=== PATIENT | female | born 1985 | race Caucasian/White ===

== ENCOUNTER 2021-09-16 19:43 | Emergency (ER) | payer OTHER, SELFPAY ==
[2021-09-16 19:45] VITALS: BP 149/95; PULSE 82; RESP 20; TEMP 36.9; O2SAT 98; BMI 50088.8
--- NOTE | 2021-09-16 20:54 | ED_ITS ---
HPI - Extremity Problem General Chief complaint: Extremity Injury, Upper Stated complaint: finger pain Time Seen by Provider: 09/16/21 20:54 History of Present Illness HPI Narrative: Patient complains of pain and swelling around the right middle finger nail bed for 2 days, no injury no fever Related Data Previous Rx's Medication Instructions Recorded acetaminophen 500 mg tablet 1,000 mg PO QID PRN #20 tab 09/16/21 cephalexin 500 mg tablet 500 mg PO QID 7 Days #28 tab 09/16/21 doxycycline hyclate 100 mg capsule 100 mg PO BID 7 Days #14 cap 09/16/21 oxycodone 5 mg tablet 5 mg PO Q6H PRN #7 tab 09/16/21 Allergies Allergy/AdvReac Type Severity Reaction Status Date / Time sertraline [From Zoloft] Allergy Hives Verified 09/16/21 21:15 Review of Systems Review of Systems: Negative no fever no chills no joint pain no other skin rash no joint pain no numbness weakness or tingling Yes all other systems are reviewed and are negative [facility] Past Medical History Source: nursing notes reviewed Medical History (Updated 09/17/21 @ 00:03 by Maci Caceres) Anxiety Arthritis Asthma Carpal tunnel syndrome Depression Social History Social History Advance Directives: No Advance Directives Information Provided: No Patient : No Physical Exam Vital Signs: Vital Signs: Last Vital Signs Temp 98.4 F 09/16/21 19:45 Pulse 82 09/16/21 19:45 Resp 20 09/16/21 19:45 BP 149/95 H 09/16/21 19:45 Pulse Ox 98 09/16/21 19:45 Body Mass Index 15651.8 General appearance no acute distress Head is normocephalic atraumatic Neck is supple Respiratory no distress Right middle finger has redness and swelling localized to the proximal nail bed, there is no redness or swelling in any of the joints there is full range of motion in all joints, skin is intact and neurovascular intact distal Other extremities normal Course Course Course Narrative: Distal right middle finger is cleansed with Betadine Anesthesia is 6 cc of 1% lidocaine digital block A small incision is made in the nail bed and pus is expressed A dressing was applied, antibiotics were provided and patient was discharged Discharge Plan Discharge Clinical Impression: Paronychia of right middle finger Patient Disposition: Home, Self-Care Additional Instructions: Return to ER in 2-3 days for wound check Two frequent soaks with Epsom salts or warm water Return any time for worse pain and swelling, fever, any worse condition or any concerns Prescriptions: New cephalexin 500 mg tablet 500 mg PO QID 7 Days Qty: 28 RF: 0 doxycycline hyclate 100 mg capsule 100 mg PO BID 7 Days Qty: 14 RF: 0 acetaminophen 500 mg tablet 1,000 mg PO QID PRN (Reason: pain) Qty: 20 RF: 0 oxycodone 5 mg tablet 5 mg PO Q6H PRN (Reason: pain) Qty: 7 RF: 0 Interventions: ED Discharge Assessment Last Done: 09/16/21 22:55 Discharge Date/Time: 09/16/21 23:00
[2021-09-16] MEDS: Lidocaine HCl 1 % MPF 5 ML VIAL SUBCUT ×2 (22:09)
[2021-09-16] MEDS: cephALEXin 500 MG CAPSULE PO (22:48)
--- NOTE | 2021-09-16 22:59 | PC.NURSE ---
PT RIGHT MIDDLE FINGER CLEANED AND PARONYCHIA DRAINED BY MICA WILKINS APPLIED.
== END 2021-09-16 23:00 | disposition home or self-care (01) ==
PROVIDERS: Emergency Provider Emergency Medicine; PCP Internal Medicine
DX: L03.011 Cellulitis of right finger (principal); Z79.899 Other long term (current) drug therapy
CPT/HCPCS: 99283; 99284

== ENCOUNTER 2022-01-23 16:16 | Outpatient (REF) | payer MEDICAID, SELFPAY ==
--- NOTE | ~2022-01-23 | XR_ITS ---
EXAMINATION: XR CHEST CLINICAL INFORMATION: Cough COMPARISON: None TECHNIQUE: 2 views of the chest were obtained. FINDINGS: No significant abnormality is noted involving the heart, lungs, mediastinum, bony thorax or soft tissues. XR/XR chest 2V IMPRESSION: Unremarkable examination.
== END 2022-01-23 16:17 | disposition home or self-care (01) ==
LOC: HO.XRAY 16:16
PROVIDERS: Visit Provider Nurse Practitioner Primary Care
DX: R05.9 Cough, unspecified (principal)
CPT/HCPCS: 71046

== ENCOUNTER 2022-07-11 09:24 | Outpatient (REF) | payer MEDICAID, SELFPAY ==
--- NOTE | ~2022-07-11 | XR_ITS ---
EXAMINATION: XR KNEE, RIGHT CLINICAL INFORMATION: Trauma right lower leg, pain. COMPARISON: None TECHNIQUE: 5 views of the right knee. FINDINGS: Normal bony mineralization. No fracture, dislocation, or destructive process. No joint narrowing or erosive change or chondrocalcinosis. There is moderate suprapatellar effusion. No fat fluid level on the crosstable lateral view. Hoffa's fat pad appears normal. The deep infrapatellar recess is preserved. XR/XR knee RT 4V IMPRESSION: Suprapatellar effusion. No fracture, dislocation, or fat fluid level.
== END 2022-07-11 09:25 | disposition home or self-care (01) ==
LOC: HO.XRAY 09:24
PROVIDERS: Absent Provider General Practice; PCP General Practice; Visit Provider Emergency Medicine
DX: S89.91XA Unspecified injury of right lower leg, initial encounter (principal)
CPT/HCPCS: 73564

== ENCOUNTER → 2022-07-16 08:51 | Outpatient (BNVA) | payer MEDICAID, SELFPAY | PROVIDERS: PCP General Practice; Visit Provider Orthopaedic Surgery | DX: M17.0 Bilateral primary osteoarthritis of knee (principal); M23.91 Unspecified internal derangement of right knee; E66.09 Other obesity due to excess calories; Z68.43 Body mass index [BMI] 50.0-59.9, adult | CPT/HCPCS: 20610; 99202; J1100 ==

== ENCOUNTER → 2022-10-01 10:16 | Outpatient (BNVA) | payer MEDICAID, SELFPAY | PROVIDERS: PCP General Practice; Visit Provider Orthopaedic Surgery | DX: M17.0 Bilateral primary osteoarthritis of knee (principal); M23.91 Unspecified internal derangement of right knee; E66.09 Other obesity due to excess calories; Z68.43 Body mass index [BMI] 50.0-59.9, adult | CPT/HCPCS: 99212 ==

== ENCOUNTER → 2022-10-08 10:35 | Outpatient (BNVA) | payer MEDICAID, SELFPAY | PROVIDERS: PCP General Practice; Visit Provider Physician Assistant | DX: Z01.818 Encounter for other preprocedural examination (principal); E66.01 Morbid (severe) obesity due to excess calories; G47.33 Obstructive sleep apnea (adult) (pediatric); J45.909 Unspecified asthma, uncomplicated; F41.9 Anxiety disorder, unspecified; F32.A Depression, unspecified; Z68.43 Body mass index [BMI] 50.0-59.9, adult; Z99.89 Dependence on other enabling machines and devices | CPT/HCPCS: 83013; 99202; 99211 ==

== ENCOUNTER 2022-10-08 14:56 | Outpatient (REF) | payer MEDICAID, SELFPAY ==
[2022-10-09 15:27] LABS: H Pylori Breath Test Negative (Negative)
== END 2022-10-08 14:57 | disposition home or self-care (01) ==
LOC: HO.LNP 14:56
PROVIDERS: Visit Provider Physician Assistant
DX: Z01.818 Encounter for other preprocedural examination (principal); E66.01 Morbid (severe) obesity due to excess calories; J45.909 Unspecified asthma, uncomplicated; G47.33 Obstructive sleep apnea (adult) (pediatric); Z99.89 Dependence on other enabling machines and devices
CPT/HCPCS: 83013

== ENCOUNTER 2022-10-12 11:47 | Outpatient (REF) | payer MEDICAID, SELFPAY ==
--- NOTE | ~2022-10-12 | XR_ITS ---
EXAMINATION: XR CHEST CLINICAL INFORMATION: Morbid/severe obesity due to excess calories. COMPARISON: None TECHNIQUE: 2 views of the chest were obtained. FINDINGS: No significant abnormality is noted involving the heart, lungs, mediastinum, bony thorax or soft tissues. XR/XR chest 2V IMPRESSION: Unremarkable chest examination.
--- NOTE | 2022-10-12 11:52 | ECG_ITS ---
Test Reason : Morbid Obesity Blood Pressure : / mmHG Vent. Rate : 065 BPM Atrial Rate : 065 BPM P-R Int : 140 ms QRS Dur : 098 ms QT Int : 410 ms P-R-T Axes : 005 009 017 degrees QTc Int : 426 ms Normal sinus rhythm Minimal voltage criteria for LVH, may be normal variant ( [place] product ) Borderline ECG No previous ECGs available Referred By: Stephanie Mon Electronically Signed By:PK CH
[2022-10-12 12:09] LABS: MANUAL DIFF FLAG NO
[2022-10-12 12:32] LABS: Basophils Percent Auto 0.1 % (0-2); Eosinophils Absolute Auto 0.2 X10*3/uL (0.0-0.4); Hematocrit 39.9 % (37.0-47.0); Hemoglobin 12.5 g/dl (12.0-16.0); Imm Gran Abs Auto 0.03 X10*3/uL (0.00-0.03); Imm Gran Pct Auto 0.4 % (0.0-0.4); Lymphocytes Absolute Auto 2.5 X10*3/uL (1.2-4.9); Lymphocytes Percent Auto 32.9 % (20-40); Mean Corpuscular HGB Conc 31.3 g/dl (31.0-35.0); Mean Corpuscular Hemoglobin 24.4 pg (27.0-33.0); Mean Corpuscular Volume 77.9 fL (80.0-98.0); Mean Platelet Volume 10.4 fL (9.4-12.3); Monocytes Absolute Auto 0.4 X10*3/uL (0.1-1.2); Monocytes Percent Auto 4.8 % (2-11); Neutrophils Absolute Auto 4.5 x10*3/uL (2.0-8.3); Neutrophils Percent Auto 59.8 % (45-73); Platelet Count 288 X10*3/uL (160-400); Red Blood Count 5.12 X10*6/uL (4.20-5.50); Red Cell Distribution Width 15.8 % (11.0-16.0); White Blood Count 7.6 X10*3/uL (4.8-10.8)
[2022-10-12 12:50] LABS: Estimated Average Glucose 97 mg/dL
[2022-10-12 13:30] LABS: Alanine Aminotransferase 12 U/L (0-31); Albumin Level 4.4 g/dL (3.5-5.0); Alkaline Phosphatase 88 U/L (39-117); Anion Gap 12 (12-20); Aspartate Amino Transferase 15 U/L (5-31); Bilirubin Total 0.4 mg/dL (0.0-1.0); Blood Urea Nitrogen 10 mg/dL (9-16); C Reactive Protein 1.33 mg/dL (< or = 0.50); Calcium 9.5 mg/dL (8.4-10.2); Carbon Dioxide 26 mmol/L (22-29); Chloride 103 mmol/L (96-108); Cholesterol 151 mg/dL; Estimated Glomerular Filt Rate > 60; Ferritin 46 ng/mL (10-122); Glucose Random 81 mg/dL (60-115); HDL Cholesterol 45 mg/dL; Insulin 11 uU/mL (2-29); Iron 31 mcg/dL (30-160); LDL Cholesterol Calculated 86 mg/dl; Percent Iron Saturation 12 % (15-50); Potassium 4.4 mmol/L (3.3-5.1); Sodium 137 mmol/L (135-145); TSH reflex Free T4 1.54 uIU/mL (0.32-4.0); Total Iron Binding Capacity 262 mcg/dL (228-428); Total Protein 7.3 g/dL (6.5-8.0); Triglycerides 103 mg/dL; Unsaturated Iron Binding 231 ug/dL; Vitamin D 25-OH Total 19.8 ng/mL (>30)
[2022-10-12 13:41] LABS: Folate 10.5 ng/mL (> or = 4.0); Vitamin B12 405 pg/mL (200-900)
[2022-10-13 17:39] LABS: Calcium (PTHI) 9.5 mg/dL (8.6-10.2); PTHI 64 pg/mL (16-77)
[2022-10-16 06:29] LABS: Zinc 94 mcg/dL (60-130)
[2022-10-17 14:39] LABS: Vitamin A 35 mcg/dL (38-98)
[2022-10-21 06:22] LABS: Vitamin B1 10 nmol/L (8-30)
== END 2022-10-12 11:48 | disposition home or self-care (01) ==
LOC: HO.LAB 11:47
PROVIDERS: PCP General Practice; Visit Provider Physician Assistant
DX: Z01.818 Encounter for other preprocedural examination (principal); E66.01 Morbid (severe) obesity due to excess calories; G47.33 Obstructive sleep apnea (adult) (pediatric); J45.909 Unspecified asthma, uncomplicated; Z99.89 Dependence on other enabling machines and devices
CPT/HCPCS: 36415; 71046; 80053; 80061; 82306; 82607; 82728; 82746; 83036; 83525; 83540; 83970; 84425; 84443; 84590; 84630; 85025; 86140; 93005

== ENCOUNTER → 2022-10-14 09:50 | Outpatient (REF) | payer MEDICAID, SELFPAY | LOC: HO.SL 09:50 | PROVIDERS: PCP General Practice; Visit Provider General Practice | DX: G47.33 Obstructive sleep apnea (adult) (pediatric) (principal) | CPT/HCPCS: 95806 ==

== ENCOUNTER → 2022-10-29 09:38 | Outpatient (BNVA) | payer MEDICAID, SELFPAY | PROVIDERS: PCP General Practice; Visit Provider Physician Assistant | DX: E66.01 Morbid (severe) obesity due to excess calories (principal); Z68.43 Body mass index [BMI] 50.0-59.9, adult | CPT/HCPCS: 99212 ==

== ENCOUNTER → 2022-11-11 15:29 | Outpatient (BNVA) | payer MEDICAID, SELFPAY | PROVIDERS: PCP General Practice; Visit Provider Dietitian, Registered | DX: E66.01 Morbid (severe) obesity due to excess calories (principal); Z68.43 Body mass index [BMI] 50.0-59.9, adult | CPT/HCPCS: 97802 ==

== ENCOUNTER → 2022-11-12 11:00 | Outpatient (BNVA) | payer OTHER, MEDICAID, SELFPAY | PROVIDERS: PCP General Practice; Visit Provider Counselor Mental Health | DX: F33.1 Major depressive disorder, recurrent, moderate (principal); F41.9 Anxiety disorder, unspecified; E66.01 Morbid (severe) obesity due to excess calories | CPT/HCPCS: 90791 ==

== ENCOUNTER → 2022-11-13 11:01 | Outpatient (BNVA) | payer OTHER, MEDICAID, SELFPAY | PROVIDERS: PCP General Practice; Visit Provider Physician Assistant Surgical | DX: Z13.89 Encounter for screening for other disorder (principal) ==

== ENCOUNTER → 2022-11-20 09:30 | Outpatient (BNVA) | payer MEDICAID, SELFPAY | PROVIDERS: PCP General Practice; Visit Provider Physician Assistant | DX: E66.01 Morbid (severe) obesity due to excess calories (principal); Z68.42 Body mass index [BMI] 45.0-49.9, adult | CPT/HCPCS: 99212 ==

== ENCOUNTER 2022-11-26 07:55 | Outpatient (REF) | payer MEDICAID, SELFPAY ==
--- NOTE | ~2022-11-26 | FL_ITS ---
EXAMINATION: XR FLUOROSCOPY UPPER GI WITH AIR CLINICAL INFORMATION: Morbid obesity due to excess calories. COMPARISON: None TECHNIQUE: Fluoroscopic assessment of the upper GI tract was performed in various upright and supine/prone obliquities utilizing thin and thick high density barium contrast material and effervescent granules. A 13 mm barium tablet was also utilized. FINDINGS: The esophagus was normal in course, caliber, and contour. There was normal distensibility with no fixed segment of narrowing. No focal mucosal abnormality was identified. There was some delay of passage of the barium tablet at the level of the midesophagus. This cleared with additional swallow of water, freely passing into the stomach. No significant esophageal dysmotility was observed. Contrast passed freely across the gastroesophageal junction into the stomach. No significant hiatal hernia. There was normal distensibility of the stomach with no focal abnormality identified. There was prompt gastric emptying into the duodenum which demonstrated a normal appearance. No gastroesophageal reflux was observed. FLUOROSCOPY TIME: 2.2 minutes DOSE AREA PRODUCT: 30.607 Gy-cm2 (hernandez-centimeter squared) FL/FL upper GI w air IMPRESSION: Normal upper GI examination.
--- NOTE | ~2022-11-26 | US_ITS ---
EXAMINATION: US COMPLETE ABDOMEN WITH LIVER ELASTOGRAPHY CLINICAL INFORMATION: Morbid/severe obesity due to excess calories. COMPARISON: None. TECHNIQUE: Real-time imaging of the abdominal viscera. Noninvasive ultrasound liver fibrosis assessment is performed using Yuli ElastPQ point quantification shear wave elastography (2D-SWE) with a C5-2 MHz transducer. Multiple elastography samples are obtained. FINDINGS: PANCREAS: Normal. The visualized pancreatic head and body are normal in appearance. The remainder of the pancreas is obscured from visualization by the overlying bowel gas. ABDOMINAL AORTA: The proximal, middle, and distal aortic segments are normal in caliber. INFERIOR VENA CAVA: Visualized portions are normal. LIVER: The liver demonstrates normal size, contour and slight increased echogenicity. No focal lesion or intrahepatic biliary duct dilatation. The right lobe measures 16.2 cm in length. The left lobe measures 10.9 cm in length. Portal flow is hepatopedal. Shear wave liver elastography median stiffness is 1.40 m/s (reference: normal median stiffness is 1.3 m/s or less). IQR/median stiffness to assess sampling precision is 0.14 (reference: good quality data set is IQR/median stiffness of 0.15 or less). GALLBLADDER: Normal. The gallbladder is physiologically distended without evidence of stones, sludge, polyps, wall thickening or pericholecystic fluid. COMMON BILE DUCT: Normal in caliber measuring 0.24 cm in diameter. RIGHT KIDNEY: Normal. No hydronephrosis. No renal calculi or focal parenchymal lesions. The kidney measures 12.0 cm in maximum dimension. LEFT KIDNEY: Normal. No hydronephrosis. No renal calculi or focal parenchymal lesions. The kidney measures 10.3 cm in maximum dimension. SPLEEN: Normal. The spleen measures 11.4 cm in maximum dimension. FREE FLUID: None. US/US abdomen comp w elastography IMPRESSION: 1. Mild hepatic steatosis. No focal lesion seen. 2. Liver elastography: Median liver stiffness measures 1.40 m/s corresponding to cACLD (ruled out). REFERENCE: Society of Radiologists in Ultrasound Liver Stiffness Thresholds (2019): LIVER STIFFNESS THRESHOLDS: *Liver Stiffness equal or less than 1.3 m/s: High probability of being normal. *Liver Stiffness less than 1.7 m/s: In the absence of other known clinical signs, rules out compensated advanced chronic liver disease. *Liver Stiffness 1.7-2.1 m/s: Suggestive of compensated advanced chronic liver disease but need further test for confirmation. *Liver Stiffness over 2.1 m/s: Rules in compensated advanced chronic liver disease. *Liver Stiffness over 2.4 m/s: Suggestive of clinically significant portal hypertension. QUALITY OF DATA SET: *IQR/Median value equal or less than 0.15 implies a quality data set. *IQR/Median value over 0.15 implies a poor quality data set. SIGNIFICANT CHANGE FROM PRIOR EXAM: Significant change if liver stiffness measurement is 10% or greater from prior exam. OTHER CONSIDERATIONS: The stage of liver fibrosis may be overestimated in the setting of acute hepatitis, liver inflammation, elevated liver function tests, hepatic vascular congestion, obstructive cholestasis, non-fasting state, and infiltrative diseases such as amyloidosis and lymphoma. In some patients with NAFLD, the liver stiffness thresholds for compensated advanced chronic liver disease may be lower. In causes other than viral hepatitis and NAFLD, liver stiffness thresholds are not well established.
== END 2022-11-26 07:56 | disposition home or self-care (01) ==
LOC: HO.US 07:55
PROVIDERS: Visit Provider Physician Assistant
DX: Z01.818 Encounter for other preprocedural examination (principal); E66.01 Morbid (severe) obesity due to excess calories; J45.909 Unspecified asthma, uncomplicated; G47.33 Obstructive sleep apnea (adult) (pediatric); Z99.89 Dependence on other enabling machines and devices
CPT/HCPCS: 74246; 76705; 76981

== ENCOUNTER → 2022-12-01 10:59 | Outpatient (BNVA) | payer OTHER, MEDICAID, SELFPAY | PROVIDERS: PCP General Practice; Visit Provider Physician Assistant | DX: Z13.89 Encounter for screening for other disorder (principal) ==

== ENCOUNTER 2022-12-03 10:00 | Outpatient (RCR) | payer MEDICAID, SELFPAY ==
--- NOTE | 2022-11-03 10:20 | MHC.PT.EP ---
[facility] [place] Office [place] Office [place] Office [address] [phone] F: [phone] F: [phone] F: [phone] F: [phone] Physical Therapy Plan of Care Date of Evaluation: Date of Surgery: Diagnosis: B knee OA Assessment: 37 y/o female referred to PT with B knee OA and unilateral internal derangement knee. S/s consistent with OA and ?meniscal involvement resulting in pain and difficulty with walking, ascending/descending stairs, kneeling, squatting, standing and getting up after prolonged sitting secondary to decreased knee/hip strength, decreased R knee AROM 5-0-95, B lateral patella tilt, pain at joint line, and impaired gait pattern. REcommend PT 2x/week for 5 weeks to address impairments, implement HEP, and optimize functional mobility. 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 Manual therapy to restore motion and function. Therapeutic exercise to improve strength and flexibility. Neuromuscular re-education for posture and balance. Therapeutic activities to return to functional activities of daily living. Electronically signed by: Mariela Bynum PT Please sign and return to therapist. Thank you for your referral.
--- NOTE | 2022-12-03 11:01 | MHC.PT.DC ---
[facility] [place] Office [place] Office [place] Office [address] Anish Panda [address] [phone] F: [phone] F: [phone] F: [phone] F: [phone] Physical Therapy Discharge Report Diagnosis: B knee OA Date of Surgery: Date of Evaluation: 11/03/22 Date of Discharge: 12/03/22 Treatments to Date: 9 Cancellations to Date: 0 No Shows to Date: 0 Discharge Status: Independent with HEP Patient Elected to Stop Discharge Summary: We reviewed HEP and she is going to start going to the gym to work on these exercises. She reports she feels she can continue I at home and would like to be d/c. At this time, she still presents with instability of R knee, however improved awareness and less hyperextension noted in static posture. She also has improved awareness while exercises to avoid hyperextension. D/c at this time. Electronically signed by: Mariela Bynum PT Please sign and return to therapist. Thank you for your referral.
== END 2022-12-03 11:01 | disposition home or self-care (01) ==
LOC: HO.PT 10:00
PROVIDERS: PCP General Practice; Visit Provider Orthopaedic Surgery
DX: M23.91 Unspecified internal derangement of right knee (principal)
CPT/HCPCS: 97110; 97140; 97161

== ENCOUNTER → 2022-12-11 10:30 | Outpatient (BNVA) | payer MEDICAID, SELFPAY | PROVIDERS: PCP General Practice; Visit Provider Physician Assistant | DX: Z13.89 Encounter for screening for other disorder (principal) ==

== ENCOUNTER 2022-12-15 09:12 | Outpatient (REF) | payer MEDICAID, SELFPAY ==
[2022-12-15 16:59] LABS: CT PCR NOT DETECTED (Not Detect.); NG PCR NOT DETECTED (Not Detect.)
[2022-12-16 04:56] LABS: HBsAGNum1 0.24 S/CO (0.00-0.99); HIV AB/AG Nonreactive (Nonreactive); HIV Num 1 0.12 S/CO (0.00-0.99); Hepatitis B Surface Antigen Negative (Negative); ~Hepatitis C Antibody Nonreactive (Nonreactive)
[2022-12-16 05:08] LABS: Syphilis Screen Nonreactive (Nonreactive)
[2022-12-16 09:07] LABS: BV Int Neg Control Negative (Negative); BV Int Pos Control Positive (Positive)
== END 2022-12-15 09:13 | disposition home or self-care (01) ==
LOC: HO.LAB 09:12
PROVIDERS: PCP General Practice; Visit Provider Advanced Practice Midwife
DX: Z01.419 Encounter for gynecological examination (general) (routine) without abnormal findings (principal); Z11.3 Encounter for screening for infections with a predominantly sexual mode of transmission; Z11.4 Encounter for screening for human immunodeficiency virus [HIV]; R10.2 Pelvic and perineal pain; R33.9 Retention of urine, unspecified
CPT/HCPCS: 0353U; 36415; 86780; 86803; 87086; 87340; 87389; 87480; 87510; 87624; 87660; 88142

== ENCOUNTER 2022-12-15 11:02 | Outpatient (REF) | payer MEDICAID, SELFPAY ==
[2022-12-17 09:39] LABS: HPV mRNA E6/E7 rflx Not Detected (Not Detected)
== END 2022-12-15 11:03 | disposition home or self-care (01) ==
LOC: HO.LNP 11:02
PROVIDERS: Visit Provider Advanced Practice Midwife
DX: Z01.419 Encounter for gynecological examination (general) (routine) without abnormal findings (principal); Z11.51 Encounter for screening for human papillomavirus (HPV); Z87.42 Personal history of other diseases of the female genital tract
CPT/HCPCS: 87624; 88142

== ENCOUNTER → 2022-12-22 10:00 | Outpatient (BNVA) | payer OTHER, MEDICAID, SELFPAY | PROVIDERS: PCP General Practice; Visit Provider Counselor Mental Health | DX: Z13.89 Encounter for screening for other disorder (principal) ==

== ENCOUNTER 2022-12-23 10:49 | Outpatient (REF) | payer MEDICAID, SELFPAY ==
--- NOTE | ~2022-12-23 | US_ITS ---
EXAMINATION: US PELVIS CLINICAL INFORMATION: Pelvic and perineal pain; the last menstrual period was on 12/21/2022. COMPARISON: None TECHNIQUE: Ultrasound of the pelvis is performed using both transabdominal and transvaginal transducers along with Doppler. Transvaginal imaging is performed due to inadequate visualization transabdominally. FINDINGS: Uterus: The uterus is anteverted and anteflexed. The uterus measures 9.7 x 4.5 x 4.9 cm. Nabothian cysts are seen within the cervix. A 2 mm calcifications incidentally noted within the cervix. The double wall endometrial thickness is 0.7 mm. The uterus is smooth in contour and has normal myometrial echogenicity. Within the fundus, a 1.9 x 1.3 x 1.3 cm hypoechoic, subserosal fibroid is noted. Adnexa: Both ovaries are visualized. There is normal color flow to the adnexa. There is no ovarian torsion. There is no pelvic ascites or fluid collection. Right ovary measures 3.1 x 1.5 x 2.2 cm, volume 5.5 mL. Left ovary measures 3.1 x 1.9 x 2.3 cm, volume 7.1 mL. The left ovary contains a 0.6 x 1.1 x 1.1 cm shadowing calcification, which may represent a dermoid tumor. US/US pelvic and transvaginal IMPRESSION: 1. A small uterine fibroid is noted within the fundus. 2. Nabothian cysts are seen within the cervix. 3. A 1.2 cm coarse calcifications noted within the left ovary, suspicious for a dermoid tumor. Gynecology evaluation management is recommended.
== END 2022-12-23 10:50 | disposition home or self-care (01) ==
LOC: HO.US 10:49
PROVIDERS: PCP General Practice; Visit Provider Advanced Practice Midwife
DX: R10.2 Pelvic and perineal pain (principal)
CPT/HCPCS: 76830; 76856

== ENCOUNTER → 2023-01-01 09:30 | Outpatient (BNVA) | payer OTHER, MEDICAID, SELFPAY | PROVIDERS: PCP General Practice; Visit Provider Physician Assistant | DX: Z13.89 Encounter for screening for other disorder (principal) ==

== ENCOUNTER 2023-01-06 10:38 | Outpatient (REF) | payer MEDICAID, SELFPAY ==
[2023-01-06 15:50] LABS: CT PCR NOT DETECTED (Not Detect.); NG PCR NOT DETECTED (Not Detect.)
[2023-01-07 09:37] LABS: BV Int Neg Control Negative (Negative); BV Int Pos Control Positive (Positive)
== END 2023-01-06 10:39 | disposition home or self-care (01) ==
LOC: HO.LNP 10:38
PROVIDERS: PCP General Practice; Visit Provider Advanced Practice Midwife
DX: Z11.3 Encounter for screening for infections with a predominantly sexual mode of transmission (principal); N89.8 Other specified noninflammatory disorders of vagina; D36.9 Benign neoplasm, unspecified site; Z87.42 Personal history of other diseases of the female genital tract
CPT/HCPCS: 0353U; 87255; 87480; 87510; 87660; 99212

== ENCOUNTER → 2023-01-29 10:43 | Outpatient (BNVA) | payer MEDICAID, SELFPAY | PROVIDERS: PCP General Practice; Visit Provider Surgery | DX: E66.01 Morbid (severe) obesity due to excess calories (principal); J45.909 Unspecified asthma, uncomplicated; G47.33 Obstructive sleep apnea (adult) (pediatric); F41.9 Anxiety disorder, unspecified; D36.9 Benign neoplasm, unspecified site; F32.A Depression, unspecified; Z99.89 Dependence on other enabling machines and devices; Z68.42 Body mass index [BMI] 45.0-49.9, adult | CPT/HCPCS: 99212 ==

== ENCOUNTER → 2023-02-09 08:49 | Outpatient (BNVA) | payer MEDICAID, SELFPAY | PROVIDERS: PCP General Practice; Visit Provider Surgery | DX: E66.01 Morbid (severe) obesity due to excess calories (principal); G47.33 Obstructive sleep apnea (adult) (pediatric); F41.9 Anxiety disorder, unspecified; F32.A Depression, unspecified; J45.909 Unspecified asthma, uncomplicated; K59.00 Constipation, unspecified; Z99.89 Dependence on other enabling machines and devices; Z68.42 Body mass index [BMI] 45.0-49.9, adult | CPT/HCPCS: 99212 ==

== ENCOUNTER → 2023-02-10 11:31 | Outpatient (BNVA) | payer MEDICAID, SELFPAY | PROVIDERS: PCP General Practice; Visit Provider Physician Assistant Surgical | DX: E66.01 Morbid (severe) obesity due to excess calories (principal); Z68.42 Body mass index [BMI] 45.0-49.9, adult | CPT/HCPCS: 99212 ==

== ENCOUNTER 2023-02-11 09:23 | Outpatient (REF) | payer MEDICAID, SELFPAY ==
[2023-02-11 09:42] LABS: MANUAL DIFF FLAG NO
[2023-02-11 09:50] LABS: Basophils Percent Auto 0.3 % (0-2); Eosinophils Absolute Auto 0.2 X10*3/uL (0.0-0.4); Eosinophils Percent Auto 3.2 % (0-4); Hematocrit 39.1 % (37.0-47.0); Hemoglobin 12.5 g/dl (12.0-16.0); Imm Gran Abs Auto 0.02 X10*3/uL (0.00-0.03); Imm Gran Pct Auto 0.3 % (0.0-0.4); Lymphocytes Absolute Auto 2.2 X10*3/uL (1.2-4.9); Mean Corpuscular Hemoglobin 25.6 pg (27.0-33.0); Mean Corpuscular Volume 80.1 fL (80.0-98.0); Monocytes Absolute Auto 0.4 X10*3/uL (0.1-1.2); Monocytes Percent Auto 4.9 % (2-11); Neutrophils Absolute Auto 4.7 x10*3/uL (2.0-8.3); Neutrophils Percent Auto 62.3 % (45-73); Platelet Count 265 X10*3/uL (160-400); Red Blood Count 4.88 X10*6/uL (4.20-5.50); White Blood Count 7.6 X10*3/uL (4.8-10.8)
[2023-02-11 09:53] LABS: INTERNATIONAL NORM RATIO 1.1 (0.9-1.1); Prothrombin Time 12.5 SEC (10.0-13.1)
[2023-02-11 09:55] LABS: Partial Thromboplastin Time 37.7 SEC (26.0-36.4)
[2023-02-11 10:05] LABS: Estimated Average Glucose 97 mg/dL
[2023-02-11 10:25] LABS: Alanine Aminotransferase 15 U/L (0-31); Alkaline Phosphatase 79 U/L (39-117); Anion Gap 10 (12-20); Aspartate Amino Transferase 13 U/L (5-31); Bilirubin Total 0.6 mg/dL (0.0-1.0); Blood Urea Nitrogen 14 mg/dL (9-16); C Reactive Protein 1.25 mg/dL (< or = 0.50); Calcium 8.9 mg/dL (8.4-10.2); Carbon Dioxide 24 mmol/L (22-29); Chloride 109 mmol/L (96-108); Cholesterol 131 mg/dL; Estimated Glomerular Filt Rate > 60; Glucose Random 93 mg/dL (60-115); HDL Cholesterol 41 mg/dL; Iron 48 mcg/dL (30-160); LDL Cholesterol Calculated 78 mg/dl; Percent Iron Saturation 18 % (15-50); Potassium 4.3 mmol/L (3.3-5.1); Sodium 139 mmol/L (135-145); Total Iron Binding Capacity 266 mcg/dL (228-428); Total Protein 6.7 g/dL (6.5-8.0); Triglycerides 63 mg/dL; Unsaturated Iron Binding 218 ug/dL
[2023-02-11 10:57] LABS: Ferritin 51 ng/mL (10-122); Vitamin B12 440 pg/mL (200-900)
[2023-02-15 11:03] LABS: Calcium (PTHI) 9.1 mg/dL (8.6-10.2); PTHI 58 pg/mL (16-77)
[2023-02-16 15:14] LABS: Zinc 74 mcg/dL (60-130)
[2023-02-18 02:13] LABS: Vitamin A 38 mcg/dL (38-98)
[2023-02-19 17:08] LABS: Vitamin B1 12 nmol/L (8-30)
== END 2023-02-11 09:24 | disposition home or self-care (01) ==
LOC: HO.LAB 09:23
PROVIDERS: PCP General Practice; Visit Provider Surgery
DX: E66.01 Morbid (severe) obesity due to excess calories (principal); G47.33 Obstructive sleep apnea (adult) (pediatric); F32.A Depression, unspecified; F41.9 Anxiety disorder, unspecified; J45.909 Unspecified asthma, uncomplicated; Z99.89 Dependence on other enabling machines and devices
CPT/HCPCS: 36415; 80053; 80061; 82306; 82607; 82728; 83036; 83540; 83970; 84425; 84443; 84590; 84630; 85025; 85610; 85730; 86140

== ENCOUNTER → 2023-02-23 11:16 | Outpatient (BNVA) | payer MEDICAID, SELFPAY | PROVIDERS: PCP General Practice; Visit Provider Obstetrics & Gynecology | DX: N83.292 Other ovarian cyst, left side (principal) | CPT/HCPCS: 99212 ==

== ENCOUNTER 2023-02-24 06:18 | Inpatient (IN) | payer MEDICAID, SELFPAY ==
[2023-02-22 12:39] VITALS: BMI 47.9
--- NOTE | 2023-02-23 09:09 | P.CONAN_ITS ---
Documented by User: Belinda Pryor NP 02/23/23 09:12 HPI - Anesthesia Eval Consult details Narrative: 38yo F for Gastrectomy Sleeve EGD, possible diaphragmatic hernia,possible ventral hernia,possible open PMFSH Active Problems Active Problems: All Active Problems (Updated 02/22/23 @ 12:38 by Iwona Bowers RN) Bilateral primary osteoarthritis of knee (Acute) Internal derangement of right knee (Acute) Morbid obesity (Acute) GENESIS on CPAP (Acute) Anxiety and depression (Acute) Pre-op evaluation (Acute) Major depressive disorder, recurrent, moderate (Acute) Anxiety disorder (Acute) Screen for sexually transmitted diseases (Acute) Pelvic pain (Acute) Urinary retention with incomplete bladder emptying (Acute) Well woman exam with routine gynecological exam (Acute) Hx of abnormal cervical Pap smear (Acute) Chronic headaches (Acute) Dermoid (Acute) Vaginal lesion (Acute) Vaginal itching (Acute) Constipation (Acute) Asthma (Acute) Past Medical History Medical History (Updated 02/24/23 @ 07:35 by Elodia Coe) Anxiety Arthritis Asthma Carpal tunnel syndrome Depression History of female sterilization Obesity due to excess calories GENESIS on CPAP Family History Family History Mother Diabetes Hypertension High cholesterol Father No problems noted. Sister ADHD Scoliosis Sister No problems noted. Sister No problems noted. Sister No problems noted. Sister No problems noted. Brother No problems noted. Daughter No problems noted. Daughter ADHD PTSD (post-traumatic stress disorder) Daughter No problems noted. Daughter No problems noted. Son No problems noted. Son No problems noted. Maternal Aunt Breast cancer Maternal Grandmother Cervical cancer Surgical History Surgical History (Updated 02/22/23 @ 12:41 by Iwona Bowers RN) Hx of skin graft Social History Social History Are you a primary career center director to a significant other at home: No Do you presently have visiting nurse or other home services: No Alcohol intake: current Alcohol intake frequency: does not drink Patient Tobacco Use Status: Former Tobacco user Quit Date: 2014 Tobacco use type: Cigarette Cigarettes Per Day: 5 Years Smoked: 4 Current occupational status: employed Current occupation: [employer] Allergies Allergy/AdvReac Type Severity Reaction Status Date / Time sertraline [From Zoloft] Allergy Intermediate Hives Verified 02/24/23 06:24 latex Allergy Mild Hives Verified 02/24/23 06:24 Home Medications Medication Instructions Recorded Confirmed Last Taken Type ESSURE control vaginal 09/28/22 02/10/23 Unknown History duloxetine 30 mg capsule,delayed 30 mg PO DAILY 09/28/22 02/24/23 02/23/23 History release albuterol sulfate 90 mcg/actuation 2 puff inhalation Q4H PRN wheezing 01/29/23 02/24/23 02/23/23 History aerosol inhaler (Ventolin HFA) fluticasone propionate 110 2 puff inhalation BID 01/29/23 02/24/23 02/24/23 History mcg/actuation HFA aerosol inhaler (Flovent HFA) Exam Exam Date and Time: February 23, 2023 0909 Height,Weight and Vital Signs: Height 5 ft 2 in Weight 119.023 kg Pertinent Lab Results Pertinent Lab Results: Laboratory Tests 02/11/23 09:35 Blood Type O Positive Antibody Screen NEGATIVE Laboratory Tests 02/11/23 02/11/23 09:40 09:40 WBC 7.6 Hgb 12.5 Hct 39.1 Plt Count 265 Sodium 139 Potassium 4.3 Chloride 109 H Carbon Dioxide 24 BUN 14 Creatinine 0.57 Assessment and Plan Assessment Anesthesia Assessment: Chart Reviewed Documented by User: Jens Angeles MD 02/24/23 08:17 [facility] Active Problems Active Problems: All Active Problems (Updated 02/22/23 @ 12:38 by Iwona Bowers RN) Bilateral primary osteoarthritis of knee (Acute) Internal derangement of right knee (Acute) Morbid obesity (Acute) GENESIS on CPAP (Acute) Anxiety and depression (Acute) Pre-op evaluation (Acute) Major depressive disorder, recurrent, moderate (Acute) Anxiety disorder (Acute) Screen for sexually transmitted diseases (Acute) Pelvic pain (Acute) Urinary retention with incomplete bladder emptying (Acute) Well woman exam with routine gynecological exam (Acute) Hx of abnormal cervical Pap smear (Acute) Chronic headaches (Acute) Dermoid (Acute) Vaginal lesion (Acute) Vaginal itching (Acute) Constipation (Acute) Asthma (Acute) joe Past Medical History Medical History (Updated 02/24/23 @ 07:35 by Elodia Coe) Anxiety Arthritis Asthma Carpal tunnel syndrome Depression History of female sterilization Obesity due to excess calories GENESIS on CPAP Patient : No Family History Family History Mother Diabetes Hypertension High cholesterol Father No problems noted. Sister ADHD Scoliosis Sister No problems noted. Sister No problems noted. Sister No problems noted. Sister No problems noted. Brother No problems noted. Daughter No problems noted. Daughter ADHD PTSD (post-traumatic stress disorder) Daughter No problems noted. Daughter No problems noted. Son No problems noted. Son No problems noted. Maternal Aunt Breast cancer Maternal Grandmother Cervical cancer Family history of problems with anesthesia: No Surgical History Surgical History (Updated 02/22/23 @ 12:41 by Iwona Bowers RN) Hx of skin graft History of Problems with Anesthesia: No Social History Social History Are you a primary career center director to a significant other at home: No Do you presently have visiting nurse or other home services: No Alcohol intake: current Alcohol intake frequency: does not drink Patient Tobacco Use Status: Former Tobacco user Quit Date: 2014 Tobacco use type: Cigarette Cigarettes Per Day: 5 Years Smoked: 4 Current occupational status: employed Current occupation: [employer] Allergies Allergy/AdvReac Type Severity Reaction Status Date / Time sertraline [From Zoloft] Allergy Intermediate Hives Verified 02/24/23 06:24 latex Allergy Mild Hives Verified 02/24/23 06:24 Home Medications Medication Instructions Recorded Confirmed Last Taken Type ESSURE control vaginal 09/28/22 02/10/23 Unknown History duloxetine 30 mg capsule,delayed 30 mg PO DAILY 09/28/22 02/24/23 02/23/23 History release albuterol sulfate 90 mcg/actuation 2 puff inhalation Q4H PRN wheezing 01/29/23 02/24/23 02/23/23 History aerosol inhaler (Ventolin HFA) fluticasone propionate 110 2 puff inhalation BID 01/29/23 02/24/23 02/24/23 History mcg/actuation HFA aerosol inhaler (Flovent HFA) Exam Airway Mallampati Class: I TM Dist: >3cm Neck ROM: Full Loose/Missing/Broken Teeth: Yes Heart: ok Lungs: ok Assessment and Plan Assessment Anesthesia Assessment: Anesthesia Plan Discussed Final Anesthetic Review Family History of Problems with Anesthesia: No History of Problems with Anesthesia: No NPO: Yes ASA Class: III Final Preanesthetic Review: No Changes in Pt Med Stat, Meds/Allgs Chart Reviewed, Consent Obtained/Reviewed and Anes Risks/Benef Reviewed Patient Risk: Intermediate Procedure Risk: Intermediate Anesthetic Plan Anesthetic Plan: GA and Agree w/ Assess. and Plan Disposition: Standard PACU
[2023-02-23 11:28] LABS: COVID-19 Test Negative (Negative); IDNOW Serial# BCCEAD1C
--- NOTE | 2023-02-23 12:49 | MHC.SHP ---
Pre-Procedural Eval Section A Date of Service: 02/23/23 The patient is an INPATIENT: Yes The History & Physical has been completed within 30 days and I have reviewed it.: Yes Section B Chief Complaint: Morbid (severe) obesity due to excess calories Allergies: Allergies Allergy/AdvReac Type Severity Reaction Status Date / Time sertraline [From Zoloft] Allergy Intermediate Hives Verified 02/23/23 11:24 latex Allergy Mild Hives Verified 02/23/23 11:24 Plan I have reviewed the history and physical and performed a pertinent physical examination on my patient. No changes have occurred unless specified. Time Spent With Patient Time: Total time managing care of this patient today ____ minutes.
[2023-02-24] VITALS (21 sets, daily range): BP systolic 112–143; BP diastolic 62–98; PULSE 56–74; RESP 14–21; TEMP 36.3–36.9; O2SAT 96–100
[2023-02-24 06:26] LABS: UPreg QC Valid YES; Urine Pregnancy NEGATIVE (NEGATIVE)
[2023-02-24] MEDS: Lactated Ringers 1,000 ML 150 ML IVCONT (06:49)
[2023-02-24] MEDS: Aprepitant 32 MG/4.4 ML VIAL IVPUSH (06:51)
--- NOTE | 2023-02-24 06:59 | PHA.MEDREC ---
Pharmacy Consult ? Medication Reconciliation Pharmacy has completed the medication reconciliation. Reviewed med rec done by nursing
--- NOTE | 2023-02-24 07:03 | P.OP_ITS ---
Operative Note Operative Note Date of Service: 02/24/23 Narrative: Preop diagnosis: [obesity, GENESIS on CPAP] Postop diagnosis: [same] Procedure: [Laparoscopic sleeve gastrectomy, intraoperative upper endoscopy, gastropexy] Surgeon: Nagi Gamboa MD Assist: [Dee Gracia PA-C] Anesthesia: [GET, Marcaine, 0.5% with epi] Estimated blood loss: [3cc] Specimen: [Portion of stomach with fundus] Intraoperative findings: [Slightly enlarged liver with NAFLD, no evidence of hiatal hernia after partial dissection of left aisha and hiatus] Indications: [The patient is a 38-year-old woman with a mosqueda with obesity refractory to medical management. She entered the surgical weight loss program here at [place] with a BMI of 53.5/292 lb with a comorbidity of obstructive sleep apnea requiring CPAP. After Education and demonstration of understanding of the concepts required for surgical weight loss, the options of continued medical weight loss versus surgical options including gastric sleeve and gastric bypass were reviewed. The patient wanted to proceed with laparoscopic sleeve gastrectomy, possible hiatal hernia repair, intraoperative upper endoscopy and possible ventral hernia repair. I reviewed the inherent risks of this procedure which include, but are not limited to: Bleeding that could require another operation or blood transfusion; the inherent risks of transfusion reaction infectious disease from blood transfusions; the risk of staple line leaks that could cause sepsis, multi-system organ failure and ; the risk of mesenteric or deep vein thrombosis of the lower extremities that could cause a fatal pulmonary embolism was reviewed; the risk of GERD that could require conversion to gastric bypass was discussed; the risk of recurrent hiatal hernia, especially in the setting of weight regain was reviewed. The risk of weight regain if maladaptive eating and sedentary behavior continue was discussed. The importance of proper diet and increased activity to augment surgical weight loss and the fact that no operation would result in weight loss of poor dietary decisions and sedentary behavior are resumed were discussed at length and apparently understood. The patient had the option of having a graves registration specialist present and declined this option.] Procedure: [The patient was identified in the preoperative holding area by myself and again in the operating suite by myself and the OR team. Patient was placed supine on the operating table. Safety straps were utilized and a footboard utilized. The patient was induced in general endotracheal anesthesia administered with excellent effect. An appropriate time-out was performed. The patient's abdomen was then widely prepped and draped in the usual manner for surgery using chlorprep. Antibiotics per protocol were administered by Anesthesia. After infiltrating preemptive local in the skin and subcutaneous tissues in the left upper quadrant, a stab incision was made sharply in the left subcostal abdomen and the Veress needle inserted without incident. An appropriate drop test was performed then a pneumoperitoneum of 15 mmHg was obtained using carbon dioxide. Opening pressures were 7 mmHg. Next, a 5 mm 0 degree scope over a 5 mm Optiview trocar was used to access the abdomen via the epigastric incision in the midline. Once the abdomen was entered, the the trocar obturator was removed and the laparoscope was used to confirm there was no injury from the Veress needle nor trocar insertion injury to the bowel or mesentery, then the scope was switched to a 5 mm 45 degree laparoscope. Next, using preemptive local, additional 5 mm trocars were placed under direct laparoscopic vision on the patient's left abdomen, then right and the 5 mm midline trocar upsized to a 12 mm to accommodate the stapler. The patient was then positioned in reverse Trendelenburg and the liver retractor deployed through the right lateral 5 mm trocar and secured. A 40 Dominican ViSiGi bougie was inserted by Anesthesia per os and advanced to the stomach to decompress. It was then withdrawn to the GE junction all under direct laparoscopic vision. Dissection was begun along the greater curvature using the 5 mm [place] LigaSure for hemostasis and continued to the left aisha of the diaphragm. Diss ection was then carried towards the pylorus to 3-4 cm from the pylorus and retro gastric adhesions lysed. The gastroesophageal fat pad was carefully mobilized taking care to avoid injury to the esophagus and stomach and dissection carried towards the short gastrics taking care to avoid injury to the spleen and splenic artery. The diaphragmatic hiatus was carefully examined for a hernia, and no a pparent hernia was appreciated, which is consistent with the upper GI study. Next, the 40 Fr ViSiGi bougie was advanced by anesthesia under direct vision and laparoscopic guidance and positioned in the antrum approximately 3 cm from the pylorus using laparoscopic graspers to serve as a guide for a stapled sleeve gastrectomy. Stapling was performed with [employer]UDIA stapler with a purple 45 and then orange 45 and 60 loads. The bougie served as a guide to maintain the same sleeve caliber to avoid stricture & sleeve distortion. The 10 mm clip hide and skin classer was used to apply additional clips to the staple line. Care was taken to be sure that the sleeve laid flat and was without stricture. Once the sleeve was complete, the portion of stomach was placed in the lower abdomen to be sent for removal and permanent section. The staple line, gastrocolic omentum, spleen and short gastric areas were all inspected for hemostasis which was found to be good. The ViSiGi bougie used for a leak test by reducing the reverse Trendelenburg and instilling sterile saline. Anesthesia ran of O2 at 1 L per minute via the bougie and no bubbles were demonstrated from the staple line. Next, the bougie was withdrawn under laparoscopic vision used to suction the esophagus and hypopharynx and then discarded. After inspecting again for hemostasis, a gastropexy was performed using 2-0 Polysorb suture to secure the sleeve gastrectomy to the gastrocolic omentum. Next, I broke scrub perform an on-table upper endoscopy to assess the sleeve and the esophagus and stomach. The patient was returned to neutral position and the Olympus 160 gastroscope was advanced taking care to preserve the endotracheal tube. The esophagus was intubated without incident. Minimal air was insufflated and the scope advanced into the newly formed sleeve. The staple line was inspected for hemostasis and the morphology of the sleeve appeared straight with a uniform diameter. Intraoperatively, there was no evidence of staple line leak seen during laparoscopy as air was insufflated via endoscope. The scope was then used to aspirate the air from the sleeve withdrawn and removed. I then rescrubbed to return to the operative field and again inspected the field for hemostasis. After final assessment for hemostasis, the patient was returned to neutral position, a Neil used to withdraw the resected gastric specimen which was sent for permanent section. The fascia of the 12 mm midline was closed using an 0 Polysorb figure of 8 on a suture passer under direct laparoscopic vision. The abdomen was then deflated and all trocars removed. The suture was then tied and the skin closed with 4-0 Monocryl subcuticular sutures. The abdomen was then washed and dried, benzoin and Steri-Strips applied followed by Tegaderms. The patient tolerated the procedure well was then extubated the recover in stable condition. All sponge needle and instrument counts were correct x2. At the patient's request, I contacted her Tu by telephone at [phone] to apprise him of the operation, findings and postoperative plan. His questions seemed to be satisfactorily answered.]
--- NOTE | 2023-02-24 07:33 | PC.NURSE ---
Verbal order per Dr. Gamboa to disregard the order for scopolamine patch. This medication not administered.
--- NOTE | 2023-02-24 10:25 | P.DS_ITS ---
DS: Providers Provider Date of Service: 02/25/23 Date of admission: 02/24/23 06:18 Primary care physician: Unknown Physician DS: Summary Hospital Course Hospital Course: ADMITTING DIAGNOSIS: morbid obesity,?GENESIS on CPAP, arthritis, anxiety, depression, asthma DISCHARGE DIAGNOSIS: same, s/p laparoscopic sleeve gastrectomy and gastropexy PAST SURGICAL HISTORY:?skin graft PROCEDURE: upper endoscopy, laparoscopic sleeve gastrectomy and gastropexy DISCHARGE SUMMARY: History of Present Illness: The patient is a?38 year-old woman with a BMI of?48 kg/m2 and associated co- morbidities as described above. The patient had extensive work-up, lost?30 lbs preoperatively and was electively scheduled for laparoscopic, possible open sleeve gastrectomy and gastropexy. Risks and complications of the surgery were discussed with the patient in advance, particularly the possibility of , pulmonary embolism, anastomotic leak, bleeding, bowel injury, GERD, cardiac, renal or pulmonary complications. The patient understood all the risks and was in agreement with the surgical plan. Hospital Course: The patient underwent an uneventful laparoscopic sleeve gastrectomy with gastropexy on the day of admission. Postoperatively, the patient was transferred to the surgical floor. The patient received IV Acetaminophen and IV dilaudid for pain control. Patient was started on bariatric phase 1 diet POD #0. On postoperative day one, the patient was feeling well without nausea, vomiting, fevers, or tachycardia. The patient had some mild incisional pain and the abdomen was soft.? On the morning of postoperative day one, the patient was continued on 1 ounce of water or ice every half hour. During the day, the patient did fairly well, having some incisional pain, but able to ambulate adequately and to tolerate liquids well. Since the patient is doing well, we decided that the patient was ready to be discharged. The patient was given instructions to follow-up with me next week and to call my office for any fever over 101, persistent abdominal pain, nausea, vomiting, GERD, symptoms of DVT such as calf tenderness, or leg swelling, or pulmonary embolism such as chest pain or shortness of breath.? The patient was also instructed to drink 40-60 ounces of liquids per day using the 1-ounce cups. The patient had been given prescriptions for Tylenol for pain, Zofran prn for nausea, and pantoprazole and carafate previously. The patient was encouraged to ambulate and use the incentive spirometer. The patient was allowed to shower, but no baths, and encouraged to stay active at home. All of these instructions were given to the patient personally. All questions were answered and the patient understood all instructions, the instructions were also given to the patient in print. Time Spent with Patient Time attestation: Total time managing care of this patient today ____ minutes. Discharge coordination time: Less than 30 minutes Quality: Safe Use of Opioids Does Pt have an Active Cancer Diagnosis on the Problem List?: No Quality: Stroke Does the patient have a stroke diagnosis?: No Physical Exam Vital Signs: Vital Signs: Last Vital Signs Temp 97.4 F 02/24/23 10:15 Pulse 65 02/24/23 10:20 Resp 19 02/24/23 10:20 BP 136/84 02/24/23 10:20 Pulse Ox 100 02/24/23 10:20 O2 Del Method Nasal Cannula 02/24/23 10:20 O2 Flow Rate 4 02/24/23 10:20 BMI result Body Mass Index 47.9 DS: Data Data Completed and Pending Pending studies at discharge: Pending at discharge 02/24/23 09:41 Surgical [PTH] Routine Labs on day of discharge: Laboratory Results - last 24 hr 02/23/23 02/24/23 10:58 06:15 Urine Test NEGATIVE COVID-19 ([facility]) Negative COVID-19 Clin Com See Note Discharge Plan Discharge Anticipated Discharge Date/Time: 02/25/23 10:00 Patient Disposition: Home, Self-Care Discharge Diagnosis: morbid obesity s/p laparoscopic sleeve gastrectomy Referrals: Physician,Unknown J [Primary Care Provider] - 1 Week Discharge Medications: Continued duloxetine 30 mg capsule,delayed release(DR/EC) 30 mg PO DAILY ESSURE control vaginal fluticasone propionate [Flovent HFA] 110 mcg/actuation HFA aerosol inhaler 2 puff inhalation BID albuterol sulfate [Ventolin HFA] 90 mcg/actuation HFA aerosol inhaler 2 puff inhalation Q4H PRN (Reason: wheezing) ondansetron HCl 4 mg tablet 4 mg PO Q6H PRN (Reason: nausea and vomiting) Qty: 20 0RF pantoprazole 40 mg tablet,delayed release (DR/EC) 40 mg PO QAM 30 Days Qty: 30 2RF sucralfate 100 mg/mL suspension 10 ml PO BID 30 Days Qty: 600 2RF acetaminophen 500 mg/15 mL liquid 500 mg PO Q6H PRN (Reason: fever or pain) Qty: 237 2RF Discontinued cholecalciferol (vitamin D3) 50 mcg (2,000 unit) capsule 50 mcg PO DAILY Qty: 30 5RF Discharge Orders: Discharge Order (Routine); Ordered 02/25/23 Ordered By: Sharon Gracia Activity on Discharge: No heavy lifting Stand Alone Forms: Patient Portal Discharge page Care Plan Goals: weight loss Health Concerns: morbid obesity Plan of Treatment: No tub baths, sex or returning to work until discussed at first post op appointment. No alcohol, tobacco or illegal drug use. Continue to use incentive spirometer hourly while awake. Walk in home for 5- 10 minutes every 2 hours during the first week. Wear abdominal binder with activity. Follow all meal plan instructions from your bariatric surgeon. Review bariatric handbook and call with any questions. Discharge Instructions 1. Please call your doctor or come back to the emergency room should any new symptoms arise. 2. Activity: abstain from alcohol,? limited stair climbing, no bending, no driving, no exercise, no illicit substances, no lifting, no sex, no tub bath, no work. 4. Diet: follow your bariatric surgeons recommendations for advancing diet. 5. Dressing Change/Wound Care: Your incisions are covered with waterproof dressings. You can shower with these and pat dry. Do not rub over dressings or incisions. If the area is tender, you may apply an ice pack for short intervals (no more than 20 minutes on, followed by at least 20 minutes off). Do not apply heat. Do not use creams, lotions, or topical antibiotics unless instructed to do so by your surgeon. 6. Call your doctor if: - Your temperature exceeds 101.5 F - You experience excessive pain or swelling - You have an unexpected reaction to medication - You have excessive bleeding - You experience continued vomiting/nausea - Your incision begins to separate - Your incision shows signs of infection such as increased redness, swelling, excessive pain, heat, or drainage (light blood or clear fluid is normal) General instructions: No lifting greater than 10 lbs for the next 6 weeks[address] driving within 24 hours of taking narcotic pain medications. If you do not move your bowels in the next 2 days, please take milk of magnesia over the counter. Please follow the post op diet and do not advance your diet until you are seen in the office in about 2 weeks. Please walk around your home every hour or two to prevent blood clots from forming in your legs. Y ou do not need to wake from sleeping to walk. Please sleep in a bed or couch to prevent kinking at the hips and knees. Please take your incentive spirometer (your lung technical documentation specialist) home with you and use it for the next few days to prevent pneumonias. You may shower, no hot tubs, baths or swimming pools. Please call the office with any questions or concerns such as increasing abdominal pain, fever, chills, shortness of breath, chest pain, leg pain or swelling, or redness or drainage from your incisions. Please make sure you are consuming 40-60 ounces of total fluids per day. Avoid all carbonation. Do not hesitate to contact the office with any questions at . The patient's medical history has been reviewed and they are considered low risk for post op DVT and therefore DVT prophylaxis is not considered necessary. Travel after surgery was reviewed. The patient has not disclosed any travel plans during the first 30 days after surgery and they have been advised that within the first 30 days after surgery any bus, plane, train or car travel over 2 hours in duration is contraindicated due to the possibility of developing blood clots from immobility. Any travel, needs to include periods of ambulation of 10 minutes in duration every 2 hours.? The patient was instructed to discuss any plans for travel during this period with their bariatric surgeon. Assessment: s/p laparoscopic sleeve gastrectomy with gastropexy
[2023-02-24] MEDS: HYDROmorphone HCl 0.5 MG/0.5 ML SYRINGE IVPUSH ×3 (10:43→12:01)
--- NOTE | 2023-02-24 11:27 | ECG_ITS ---
Test Reason : postop Blood Pressure : / mmHG Vent. Rate : 056 BPM Atrial Rate : 056 BPM P-R Int : 158 ms QRS Dur : 102 ms QT Int : 444 ms P-R-T Axes : 020 -02 -03 degrees QTc Int : 428 ms Sinus bradycardia Nonspecific T wave abnormality Abnormal ECG When compared with ECG of 12-OCT-2022 12:16, Nonspecific T wave abnormality now evident in Anterolateral leads Referred By: Yariel Langston Electronically Signed By:Alfonzo Almodovar
[2023-02-24 12:14] LABS: Hematocrit 37.9 % (37.0-47.0)
--- NOTE | 2023-02-24 12:21 | P.PNGS_ITS ---
Subjective Subjective Date of Service: 02/24/23 Patient reports: still having pain Interval history: The patient is seen in PACU just before she is being transferred to [facility]. She reports expected pain that is worse with inspiration and radiating up towards her right neck and shoulders. She also has some complaints of left chest pain that prompted an EKG that showed no ST elevation or acute changes. She is having no nausea nor vomiting at this time. Physical Exam Vital Signs: Vital Signs: Last Vital Signs Temp 97.8 F 02/24/23 12:01 Pulse 58 02/24/23 12:06 Resp 17 02/24/23 12:06 BP 122/81 02/24/23 12:06 Pulse Ox 96 02/24/23 12:06 O2 Del Method Nasal Cannula 02/24/23 12:06 O2 Flow Rate 2 02/24/23 12:06 BMI result Body Mass Index 47.9 She is nontoxic She is in no acute respiratory distress Appropriate incisional tenderness is noted Objective Data Active Medications Albuterol Sulfate (Albuterol Sulfate (0.083%) 2.5 Mg/3 Ml Vial.Neb) 2.5 mg INHALE ONCE PRN PRN Reason: Shortness of Breath/Wheezing Fentanyl (Fentanyl Citrate/Pf 100 Mcg/2 Ml Vial) 50 mcg IVPUSH Q5M PRN; Protocol PRN Reason: Pain, Severe (Pain Scale 7-10) Hydromorphone HCl (Hydromorphone Hcl 0.5 Mg/0.5 Ml Syringe) 0.5 mg IVPUSH Q5M PRN; Protocol PRN Reason: Pain, Severe (Pain Scale 7-10) Last Admin: 02/24/23 12:01 Dose: 0.25 mg Documented By: ANI Lactated Ringer's (Lr) 1,000 mls @ 150 mls/hr IVCONT .Q6H40M EMILI Last Admin: 02/24/23 06:49 Dose: 150 mls/hr Documented By: STACY Ondansetron HCl (Ondansetron Hcl 4 Mg/2 Ml Vial) 4 mg IVPUSH ONCE PRN PRN Reason: Nausea and Vomiting Labs 02/24/23 12:07 02/24/23 12:07 Labs: Laboratory Results - last 24 hr 02/24/23 06:15 Urine Test NEGATIVE Procedures Date of Service Date of Service: 02/24/23 Progress Note: A&P Assessment and plan (1) S/P laparoscopic sleeve gastrectomy: Status: Acute (2) Morbid obesity: Status: Acute (3) GENESIS on CPAP: Status: Acute (4) Bilateral primary osteoarthritis of knee: Status: Acute Plan See orders Patient is okay to use her own CPAP at present settings Trend labs. Encourage sips of water per protocol. Time Spent With Patient Time: Total time managing care of this patient today ____ minutes. Quality Stroke Does the patient have a stroke diagnosis?: No VTE Prior VTE?: No VTE Risk Level:: Surgical - moderate VTE Device Contraindication: N/A - Device Ordered VTE Drug Contraindication: Treatment Not Indicated
[2023-02-24 12:37] LABS: Anion Gap 13 (12-20); Blood Urea Nitrogen 7 mg/dL (9-16); Calcium 8.7 mg/dL (8.4-10.2); Carbon Dioxide 25 mmol/L (22-29); Chloride 105 mmol/L (96-108); Creatinine Clr Calc Pharmacy 167.3; Estimated Glomerular Filt Rate > 60; Glucose Random 140 mg/dL (60-115); Potassium 3.8 mmol/L (3.3-5.1); Sodium 139 mmol/L (135-145)
[2023-02-24] MEDS: Lactated Ringers 1,000 ML 100 ML IVCONT ×2 (13:26→22:41)
[2023-02-24] MEDS: ceFAZolin Sodium/Dextrose,Iso 2 GM/50 ML PIGGYBACK IV (13:45)
[2023-02-24] MEDS: Acetaminophen 1,000 MG/100 ML PIGGYBACK 16.7 MG IV ×2 (14:24→19:39)
[2023-02-24] MEDS: ondansetron HCL 4 MG/2 ML VIAL IVPUSH (19:39)
[2023-02-24] MEDS: 0.9 % Sodium Chloride Flush 3 ML SYRINGE IVFLUSH (19:39)
[2023-02-24] MEDS: Famotidine/PF 20 MG/2 ML VIAL IVPUSH (19:39)
[2023-02-24] MEDS: Fluticasone Propionate 100 MCG BLST.W.DEV 2 PUFF INHALE (20:12)
[2023-02-25] MEDS: Acetaminophen 1,000 MG/100 ML PIGGYBACK 16.7 MG IV (01:21)
[2023-02-25 03:43] VITALS: BP 127/78; PULSE 52; RESP 16; TEMP 36.3; O2SAT 96
[2023-02-25] MEDS: ondansetron HCL 4 MG/2 ML VIAL IVPUSH (04:20)
[2023-02-25 06:49] LABS: MANUAL DIFF FLAG NO
[2023-02-25 06:59] LABS: Basophils Percent Auto 0.1 % (0-2); Eosinophils Percent Auto 0.2 % (0-4); Hematocrit 35.8 % (37.0-47.0); Hemoglobin 11.2 g/dl (12.0-16.0); Imm Gran Abs Auto 0.03 X10*3/uL (0.00-0.03); Imm Gran Pct Auto 0.3 % (0.0-0.4); Lymphocytes Absolute Auto 2.3 X10*3/uL (1.2-4.9); Lymphocytes Percent Auto 25.5 % (20-40); Mean Corpuscular HGB Conc 31.3 g/dl (31.0-35.0); Mean Corpuscular Hemoglobin 25.6 pg (27.0-33.0); Mean Corpuscular Volume 81.7 fL (80.0-98.0); Mean Platelet Volume 11.5 fL (9.4-12.3); Monocytes Absolute Auto 0.5 X10*3/uL (0.1-1.2); Monocytes Percent Auto 5.4 % (2-11); Neutrophils Absolute Auto 6.1 x10*3/uL (2.0-8.3); Neutrophils Percent Auto 68.5 % (45-73); Platelet Count 245 X10*3/uL (160-400); Red Blood Count 4.38 X10*6/uL (4.20-5.50); Red Cell Distribution Width 15.9 % (11.0-16.0); White Blood Count 8.9 X10*3/uL (4.8-10.8)
[2023-02-25] MEDS: Famotidine/PF 20 MG/2 ML VIAL IVPUSH (07:07)
[2023-02-25] MEDS: DULoxetine HCl 30 MG CAPSULE.DR PO (07:07)
[2023-02-25 07:12] LABS: Anion Gap 12 (12-20); Blood Urea Nitrogen 6 mg/dL (9-16); Calcium 9.2 mg/dL (8.4-10.2); Carbon Dioxide 26 mmol/L (22-29); Chloride 106 mmol/L (96-108); Creatinine Clr Calc Pharmacy 161.6; Estimated Glomerular Filt Rate > 60; Glucose Random 91 mg/dL (60-115); Potassium 4.1 mmol/L (3.3-5.1); Sodium 140 mmol/L (135-145)
--- NOTE | 2023-02-25 07:18 | P.PNGS_ITS ---
Subjective Subjective Date of Service: 02/25/23 Patient reports: feels better Interval history: The patient reports that she is doing very well. She has no chest pain, difficulty breathing, shortness of breath. Her overall improvement is noted and she is tolerating sips of water with no regurgitation, odynophagia, nausea, vomiting or hematemesis. She reports minimal pain and minimal nausea. She is anxious to be discharged. Physical Exam Vital Signs: Vital Signs: Last Vital Signs Temp 97.3 F 02/25/23 03:43 Pulse 52 02/25/23 03:43 Resp 16 02/25/23 03:43 BP 127/78 02/25/23 03:43 Pulse Ox 96 02/25/23 03:43 O2 Del Method CPAP 02/25/23 03:43 O2 Flow Rate 2 02/24/23 12:38 BMI result Body Mass Index 47.9 On exam, she is nontoxic She is in no acute respiratory distress Abdominal binder is intact with appropriate incisional tenderness. No rigidity is noted Objective Data Active Medications Albuterol Sulfate (Albuterol Sulfate 90 Mcg 8 Gm Inhaler) 2 puff INHALE Q4H PRN PRN Reason: wheezing Duloxetine HCl (Duloxetine Hcl 30 Mg Capsule.Dr) 30 mg PO DAILY [facility] Last Admin: 02/25/23 07:07 Dose: 30 mg Documented By: MABLE Famotidine (Famotidine/Pf 20 Mg/2 Ml Vial) 20 mg IVPUSH BID [facility] Last Admin: 02/25/23 07:07 Dose: 20 mg Documented By: MABLE Fluticasone Propionate (Fluticasone Propionate 100 Mcg Blst.W.Dev) 2 puff INHALE RBID [facility] Last Admin: 02/24/23 20:12 Dose: 2 puff Documented By: BENEDICTO Hydromorphone HCl (Hydromorphone Hcl 0.5 Mg/0.5 Ml Syringe) 0.25 mg IVPUSH Q4H PRN; Protocol PRN Reason: Pain, Moderate (Pain Scale 4-6 Lactated Ringer's (Lr) 1,000 mls @ 100 mls/hr IVCONT .Q10H [facility] Last Admin: 02/24/23 22:41 Dose: 100 mls/hr Documented By: STEPHANI Acetaminophen (Ofirmev) 1,000 mg in 100 mls @ 16.7 mls/hr IV .Q6H [facility] Last Admin: 02/25/23 01:21 Dose: 16.7 mls/hr Documented By: STEPHANI Metoclopramide HCl (Metoclopramide Hcl 10 Mg/2 Ml Vial) 10 mg IVPUSH Q6H PRN PRN Reason: Nausea Ondansetron HCl (Ondansetron Hcl 4 Mg/2 Ml Vial) 4 mg IVPUSH Q8H [facility] Last Admin: 02/25/23 04:20 Dose: 4 mg Documented By: STEPHANI Sodium Chloride (0.9 % Sodium Chloride Flush 3 Ml Syringe) 3 ml IVFLUSH QSHIFT [facility] Last Admin: 02/24/23 19:39 Dose: 3 ml Documented By: STEPHANI Labs 02/25/23 05:52 02/25/23 05:52 Labs: Laboratory Results - last 24 hr 02/24/23 02/25/23 02/25/23 12:07 05:52 05:52 MCV 81.7 MCH 25.6 L MCHC 31.3 RDW 15.9 Plt Count 245 MPV 11.5 Immature Gran % (Auto) 0.3 Neut % (Auto) 68.5 Lymph % (Auto) 25.5 [place] % (Auto) 5.4 Eos % (Auto) 0.2 Baso % (Auto) 0.1 Lymph # (Auto) 2.3 [place] # (Auto) 0.5 Eos # (Auto) 0.0 Baso # (Auto) 0.0 Abs Immat Gran (auto) 0.03 Absolute Neuts (auto) 6.1 Absolute Nucleated RBC 0.000 Nucleated RBC % (auto) 0.0 Anion Gap 13 12 Estim Creat Clear Calc 167.3 161.6 Estimated GFR > 60 > 60 Random Glucose 140 H 91 Calcium 8.7 9.2 Procedures Date of Service Date of Service: 02/25/23 Progress Note: A&P Assessment and plan (1) S/P laparoscopic sleeve gastrectomy: Status: Acute (2) Bilateral primary osteoarthritis of knee: Status: Acute (3) GENESIS on CPAP: Status: Acute (4) Morbid obesity: Status: Acute Plan Patient is meeting hydration criteria in stable for discharge Patient's hemoglobin his diluted down based on this morning's BUN versus yesterday, given the lack of tachycardia, I suspect there is no ongoing bleeding or clinical reason to detained the patient. PA will review dietary plan and discharge the patient later this morning. Follow-up in the office in 1 week. Time Spent With Patient Time: Total time managing care of this patient today ____ minutes. Quality Stroke Does the patient have a stroke diagnosis?: No VTE Prior VTE?: No VTE Risk Level:: Surgical - moderate VTE Device Contraindication: N/A - Device Ordered VTE Drug Contraindication: Treatment Not Indicated
[2023-02-25 07:52] VITALS: BP 126/78; PULSE 59; RESP 18; TEMP 36.3; O2SAT 97
[2023-02-25 08:17] VITALS: O2SAT 97
[2023-02-25] MEDS: Fluticasone Propionate 100 MCG BLST.W.DEV 2 PUFF INHALE (08:17)
[2023-02-25 08:19] VITALS: PULSE 73; RESP 16; O2SAT 98
--- NOTE | 2023-02-25 08:52 | MHC.CM.PN ---
Addendum entered by Janette Sesay 02/25/23 08:55: Patient is discharged to home self care. Partner will transport home. Original Note: Female 37 S/P gastric Sleeve. She lives with Partner and kids. She is independent will all functional mobility. Vaxxed for Covid DP Home self care Pt will arrange transport home.
--- NOTE | 2023-02-25 14:18 | HO.POSTANES ---
Post Anesthesia Evaluation Post Anesthesia Evaluation Vital Signs: Vital Signs Temp Pulse Resp BP Pulse Ox O2 Del Method 02/25/23 08:17 97 Room Air 02/25/23 08:19 73 16 02/25/23 07:52 97.4 F 59 18 126/78 97 Room Air 02/25/23 03:43 97.3 F 52 16 127/78 96 CPAP Anesthesia: General Endotracheal-GETA Mental Status: Awake Pain Control: Satisfactory Nausea/Vomiting: None Hydration: Adequate Anesthesia-Related Issues: No Anes. Related Issues
== END 2023-02-25 10:53 | disposition home or self-care (01) | DRG 403 ==
LOC: HO.SSSA 10:25 → HO.S3 11:07
PROVIDERS: Nurse Practitioner; Physician Assistant Surgical; Admitting Provider Surgery; PCP General Practice; Visit Provider Surgery
PROC: 0DB64Z3 Excision of Stomach, Percutaneous Endoscopic Approach, Vertical (ICD-10-PCS; CPT 43845; principal; 2023-02-24 07:30)
DX: E66.01 Morbid (severe) obesity due to excess calories (principal); K76.0 Fatty (change of) liver, not elsewhere classified; F32.A Depression, unspecified; F41.9 Anxiety disorder, unspecified; G47.33 Obstructive sleep apnea (adult) (pediatric); J45.909 Unspecified asthma, uncomplicated; M17.0 Bilateral primary osteoarthritis of knee; Z68.43 Body mass index [BMI] 50.0-59.9, adult; Z20.822 Contact with and (suspected) exposure to COVID-19; Z87.891 Personal history of nicotine dependence; Z91.040 Latex allergy status; Z88.8 Allergy status to other drugs, medicaments and biological substances; Z79.51 Long term (current) use of inhaled steroids; Z79.899 Other long term (current) drug therapy
CPT/HCPCS: 36415; 80048; 80053; 80061; 81025; 82306; 82607; 82728; 83036; 83540; 83970; 84425; 84443; 84590; 84630; 85014; 85018; 85025; 85610; 85730; 86140; 86850; 86900; 86901; 87635; 88307; 88342; 93005; 94640; 94664; C9088; C9145; J0131; J0690; J1100; J1170; J2250; J2405; J3010

== ENCOUNTER → 2023-03-03 10:31 | Outpatient (BNVA) | payer MEDICAID, SELFPAY | PROVIDERS: PCP General Practice; Visit Provider Physician Assistant | DX: E66.09 Other obesity due to excess calories (principal); Z68.42 Body mass index [BMI] 45.0-49.9, adult; Z90.3 Acquired absence of stomach [part of] | CPT/HCPCS: 99212 ==

== ENCOUNTER 2023-04-08 13:42 | Outpatient (REF) | payer MEDICAID, SELFPAY ==
--- NOTE | ~2023-04-08 | US_ITS ---
EXAMINATION: US PELVIS AND TRANSVAGINAL CLINICAL INFORMATION: Ovarian cyst. COMPARISON: Pelvic ultrasound 12/23/2022: 1.2 cm coarse calcifications noted within the left ovary, suspicious for a dermoid tumor. Gynecology evaluation management is recommended. TECHNIQUE: Ultrasound of the pelvis is performed using both transabdominal and transvaginal transducers along with Doppler. Transvaginal imaging is performed due to inadequate visualization transabdominally. FINDINGS: UTERUS: The uterus is anteverted and measures 8.9 x 5.0 x 5.6 cm. There is a fundal fibroid present slightly larger than previous measuring 2.2 x 1.5 x 1.8 cm (previously 1.9 x 1.3 x 1.3 cm). The double wall endometrial thickness is 9 mm. Nabothian cysts are present in the cervix. Small amount of free fluid present in the cul-de-sac. ADNEXA: Both ovaries are visualized. There is normal color flow to the adnexa. There is no ovarian torsion. There is no pelvic ascites or fluid collection. Right ovary measures 5.1 x 2.8 x 3.1 cm for a volume of 23 mL which includes a corpus luteal cyst measuring 1.9 x 1.5 x 1.8 cm. Left ovary measures 3.4 x 2.0 x 2.3 cm for a volume of 8.1 mL. Again seen are some echogenic areas in the ovary measuring 9 x 8 x 11 mm and 7 x 6 x 9 mm which may represent a dermoid and not significantly changed when compared to the prior study. US/US pelvic and transvaginal IMPRESSION: 1. Small fundal fibroid slightly larger than previous study. 2. Right ovarian corpus luteal cyst. 3. Question of left ovarian dermoid with areas of possible calcification, not significantly changed.
== END 2023-04-08 13:43 | disposition home or self-care (01) ==
LOC: HO.HMGCX 13:42
PROVIDERS: PCP General Practice; Visit Provider Obstetrics & Gynecology
DX: N83.299 Other ovarian cyst, unspecified side (principal)
CPT/HCPCS: 76830; 76856

== ENCOUNTER → 2023-04-09 11:10 | Outpatient (BNVA) | payer MEDICAID, SELFPAY | PROVIDERS: PCP General Practice; Visit Provider Physician Assistant | DX: Z98.84 Bariatric surgery status (principal) | CPT/HCPCS: 99212 ==

== ENCOUNTER 2023-04-14 10:31 | Outpatient (REF) | payer MEDICAID, SELFPAY ==
[2023-04-14 12:52] LABS: Lactate Dehydrogenase 196 U/L (122-220)
[2023-04-16 18:49] LABS: HCG Tumor Marker <5 mIU/mL
[2023-04-17 11:19] LABS: CA-125 71 U/mL (<35)
[2023-04-19 13:28] LABS: Alpha Fetoprotein 2.1 ng/mL
== END 2023-04-14 10:32 | disposition home or self-care (01) ==
LOC: HO.LAB 10:31
PROVIDERS: PCP General Practice; Visit Provider Obstetrics & Gynecology
DX: N83.299 Other ovarian cyst, unspecified side (principal); D25.9 Leiomyoma of uterus, unspecified
CPT/HCPCS: 36415; 82105; 83615; 84702; 86304; 99212

== ENCOUNTER 2023-04-15 13:32 | Outpatient (REF) | payer MEDICAID, SELFPAY ==
--- NOTE | ~2023-04-15 | XR_ITS ---
EXAMINATION: XR LUMBOSACRAL SPINE WITH OBLIQUES CLINICAL INFORMATION: Low back pain since weight loss surgery. COMPARISON: None available. TECHNIQUE: AP, both oblique, and lateral views of the lumbar spine. Lateral view of the lumbosacral junction. FINDINGS: There is normal lumbar lordosis and spinal alignment. The vertebral bodies and intervertebral disc spaces are unremarkable. There is no acute fracture or significant degenerative changes. The soft tissues are unremarkable. Multiple surgical clips overlie the epigastric region. Essure devices overlie the pelvis bilaterally. XR/XR lumbar spine 4V min IMPRESSION: 1. No significant lumbar spine abnormality. 2. Multiple surgical clips overlying the epigastric region.
== END 2023-04-15 13:33 | disposition home or self-care (01) ==
LOC: HO.HHCX 13:32
PROVIDERS: Visit Provider Internal Medicine
DX: M54.42 Lumbago with sciatica, left side (principal)
CPT/HCPCS: 72110

== ENCOUNTER → 2023-04-19 14:53 | Outpatient (BNVA) | payer MEDICAID, SELFPAY | PROVIDERS: PCP General Practice; Visit Provider Obstetrics & Gynecology | DX: N83.299 Other ovarian cyst, unspecified side (principal) | CPT/HCPCS: 99212 ==

== ENCOUNTER 2023-06-15 11:47 | Outpatient (REF) | payer MEDICAID, SELFPAY ==
[2023-06-15 13:37] LABS: MANUAL DIFF FLAG NO
[2023-06-15 13:52] LABS: INTERNATIONAL NORM RATIO 1.1 (0.9-1.1); Prothrombin Time 12.9 SEC (11.1-13.3)
[2023-06-15 13:55] LABS: Partial Thromboplastin Time 33.2 SEC (26.0-36.4)
[2023-06-15 13:59] LABS: Basophils Percent Auto 0.3 % (0-2); Eosinophils Absolute Auto 0.2 X10*3/uL (0.0-0.4); Eosinophils Percent Auto 2.9 % (0-4); Hemoglobin 13.6 g/dl (12.0-16.0); Imm Gran Abs Auto 0.02 X10*3/uL (0.00-0.03); Imm Gran Pct Auto 0.3 % (0.0-0.4); Lymphocytes Absolute Auto 2.5 X10*3/uL (1.2-4.9); Lymphocytes Percent Auto 36.2 % (20-40); Mean Corpuscular HGB Conc 32.4 g/dl (31.0-35.0); Mean Corpuscular Hemoglobin 27.9 pg (27.0-33.0); Mean Corpuscular Volume 86.2 fL (80.0-98.0); Mean Platelet Volume 12.3 fL (9.4-12.3); Monocytes Absolute Auto 0.3 X10*3/uL (0.1-1.2); Monocytes Percent Auto 4.6 % (2-11); Neutrophils Absolute Auto 3.8 x10*3/uL (2.0-8.3); Neutrophils Percent Auto 55.7 % (45-73); Platelet Count 264 X10*3/uL (160-400); Red Blood Count 4.87 X10*6/uL (4.20-5.50); White Blood Count 6.8 X10*3/uL (4.8-10.8)
[2023-06-15 14:19] LABS: Alanine Aminotransferase 11 U/L (0-31); Albumin Level 4.3 g/dL (3.5-5.0); Alkaline Phosphatase 78 U/L (39-117); Anion Gap 11 (12-20); Aspartate Amino Transferase 13 U/L (5-31); Bilirubin Total 0.4 mg/dL (0.0-1.0); Blood Urea Nitrogen 13 mg/dL (9-16); C Reactive Protein 0.63 mg/dL (< or = 0.50); Calcium 10.2 mg/dL (8.4-10.2); Carbon Dioxide 29 mmol/L (22-29); Chloride 103 mmol/L (96-108); Estimated Glomerular Filt Rate > 60; Glucose Random 87 mg/dL (60-115); Iron 36 mcg/dL (30-160); Percent Iron Saturation 14 % (15-50); Potassium 3.3 mmol/L (3.3-5.1); Sodium 140 mmol/L (135-145); Total Iron Binding Capacity 251 mcg/dL (228-428); Total Protein 7.5 g/dL (6.5-8.0); Unsaturated Iron Binding 215 ug/dL
[2023-06-15 14:20] LABS: Ferritin 54 ng/mL (10-122); TSH reflex Free T4 1.02 uIU/mL (0.32-4.0)
[2023-06-15 14:27] LABS: Erythrocyte Sedimentation Rate 23 MM/HR (0-20)
[2023-06-15 14:38] LABS: Folate 3.5 ng/mL (> or = 4.0); Vitamin B12 424 pg/mL (200-900)
[2023-06-21 13:18] LABS: Anti Nuclear Antibody Pattern Nuclear, Speckled; Anti Nuclear Antibody Screen POSITIVE (NEGATIVE)
== END 2023-06-15 11:48 | disposition home or self-care (01) ==
LOC: HO.HHCL 11:47
PROVIDERS: Visit Provider Student in an Organized Health Care Education/Training Program
DX: R23.3 Spontaneous ecchymoses (principal)
CPT/HCPCS: 36415; 80053; 82607; 82728; 82746; 83540; 84443; 85025; 85610; 85611; 85652; 85730; 85732; 86038; 86039; 86140

== ENCOUNTER 2023-08-28 15:29 | Emergency (ER) | payer MEDICAID, SELFPAY ==
--- NOTE | ~2023-08-28 | CT_ITS ---
CT ORBITS WITH CONTRAST HISTORY: 38 years old Female, right eye pain TECHNIQUE: CT images of the orbits were acquired with 85 mL Omnipaque [address] examination was performed using dose optimization techniques as appropriate, variously including the following: *Automated exposure control *Adjustment of mA and/or kV according to patient size (this includes techniques or standardized protocols for targeted exams where dose is matched to indication/reason for exam; i.e. extremities or head) *Use of iterative reconstruction technique DLP: 148.02 mGy-cm mGy-cm COMPARISON: None available FINDINGS: No evidence of globe hemorrhage or lens dislocation. No retrobulbar hematoma or radio-opaque foreign body. Normal symmetric appearance of the extraocular muscles. No abnormal enhancement. No infiltration of the pre- or postseptal fat. Right-sided staphyloma. Small staphyloma. Limited intracranial evaluation within normal limits. Trace layering fluid in the right maxillary sinus. The visualized calvarium is within normal limits. The mastoid air cells are well-aerated. CT/CT orbit BI w IV con IMPRESSION: The orbits and globes are within normal limits. No intraorbital mass is visualized. Right greater than left staphyloma.
[2023-08-28 15:56] VITALS: BP 142/89; PULSE 61; RESP 18; TEMP 36.8; O2SAT 96; BMI 34.7
--- NOTE | 2023-08-28 15:57 | ED.EYEPROB ---
HPI - Eye Problem General Chief complaint: Eye Problems Stated complaint: right eye swelling and pain Time Seen by Provider: 08/28/23 16:52 Source: patient and RN notes reviewed Mode of arrival: ambulatory Limitations: no limitations History of Present Illness HPI Narrative: This is a 38-year-old female, with a history of anxiety, arthritis, asthma, carpal tunnel syndrome, and unknown autoimmune disorder, presenting to the emergency department for evaluation of atraumatic right eye pain and redness since this morning. Patient states that last night she felt as though her contacts for into long and she took them out. She felt that discomfort on her eye after taking them out, which since improved. She states that she woke up this morning and her right eye was swollen, painful, red and swollen shut. She reports that she has had pain with movement of her eye. Reports decreased vision of her right eye. She denies taking any medications at home to treat her current symptoms. Denies history of similar symptoms in the past. No other complaints or concerns at this time. MD chief complaint: eye pain, eye redness and vision change Onset description: gradual Duration: constant Location: right eye Eye Symptoms: redness, pain, foreign body sensation, decreased vision, blurry vision and photophobia Place: home Mechanism: none Severity: moderate If Pain, Quality: aching Associated symptoms: none Treatments Prior to Arrival: none Related Data Home Medications Medication Instructions Recorded Confirmed ESSURE control vaginal 09/28/22 03/19/23 duloxetine 30 mg capsule,delayed 30 mg PO DAILY 09/28/22 03/19/23 release albuterol sulfate 90 mcg/actuation 2 puff inhalation Q4H PRN wheezing 01/29/23 03/19/23 aerosol inhaler (Ventolin HFA) fluticasone propionate 110 2 puff inhalation BID 01/29/23 03/19/23 mcg/actuation HFA aerosol inhaler (Flovent HFA) Previous Rx's Medication Instructions Recorded acetaminophen 500 mg/15 mL oral 500 mg (15 mL) PO Q6H PRN fever or 02/09/23 liquid pain #237 mL pantoprazole 40 mg tablet,delayed 40 mg PO QAM 30 days #30 tabs 02/09/23 release sucralfate 100 mg/mL oral 10 ml PO BID 30 days #600 mL 02/09/23 suspension psyllium husk 3 gram/5.4 gram oral 1 tbsp PO DAILY #426 grams 03/19/23 powder (Reguloid (psyllium husk)) docusate sodium 100 mg capsule 100 mg PO BID #60 caps 04/09/23 (Colace) cephalexin 500 mg tablet 500 mg PO Q6H 10 days #40 tabs 08/28/23 doxycycline hyclate 100 mg capsule 100 mg PO BID 10 days #20 caps 08/28/23 erythromycin 5 mg/gram (0.5 %) eye 1 appl ophthalmic (eye) TID 5 days 08/28/23 ointment #3.5 grams Allergies Allergy/AdvReac Type Severity Reaction Status Date / Time sertraline [From Zoloft] Allergy Intermediate Hives Verified 04/19/23 14:57 latex Allergy Mild Hives Verified 04/19/23 14:57 Review of Systems Review of Systems: Yes all other systems are reviewed and are negative Constitutional: Constitutional: Reports as per [facility] Past Medical History Attestation statement: The following information was validated with the patient. Medical History History of female sterilization GENESIS on CPAP Hx of abnormal cervical Pap smear Well woman exam with routine gynecological exam Screen for sexually transmitted diseases Pre-op evaluation Obesity due to excess calories Depression Anxiety Arthritis Carpal tunnel syndrome Asthma Surgical History Hx of skin graft Family History Family History Mother Diabetes Hypertension High cholesterol Father No problems noted. Sister ADHD Scoliosis Sister No problems noted. Sister No problems noted. Sister No problems noted. Sister No problems noted. Brother No problems noted. Daughter No problems noted. Daughter ADHD PTSD (post-traumatic stress disorder) Daughter No problems noted. Daughter No problems noted. Son No problems noted. Son No problems noted. 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 Vital Signs: Vital Signs: Last Vital Signs Temp 98.1 F 08/28/23 20:56 Pulse 77 08/28/23 20:56 Resp 19 08/28/23 20:56 BP 142/81 H 08/28/23 20:56 Pulse Ox 98 08/28/23 20:56 O2 Del Method Room Air 08/28/23 20:56 BMI result Body Mass Index 34.7 Const: General: cooperative, comfortable and no acute distress Orientation/consciousness: patient oriented x3 Limitations: no limitations HEENT: Head: Yes normal to inspection, Yes normocephalic and Yes atraumatic Ears: hearing grossly normal bilaterally General nose exam: Normal external nose present Face and sinus: Yes normal facial exam Mouth: Normal oral and palatal mucosa present, oropharynx normal and moist mucous membranes Throat: Yes posterior oropharynx normal Eyes: Other: Right eye with mild exopthalmos, and is edematous, swollen shut. Right a eye pupil is sluggish with light reflex. Pain with extraoccular movements. No ophthalmoplegia. + photophobia. No drainage noted. General: appearance normal, both eyes and all related structures Eyelids: Yes eyelids normal Conjunctivae: conjunctivae normal Sclerae: sclerae normal Pupils: Equal, round and reactive pupils present EOM: EOMs intact bilaterally Neck: Neck: Yes normal visual inspection, Yes full ROM and Yes no lymphadenopathy Lymphatic: no lymphadenopathy noted Chest: Chest palpation & inspection: normal inspection of the chest Resp: Effort & Inspection: normal respiratory effort and able to speak in complete sentences Auscultation: clear to auscultation bilaterally, no crackles, no rales, no rhonchi and no wheezes Cardio: Rate: regular rate Rhythm: regular rhythm Heart sounds: S1 normal heart sound present and S2 normal heart sound present GI: Inspection: Yes normal to inspection Skin: General skin exam: no rashes or lesions noted Trauma: no lacerations or abrasions Wounds: no wounds Neuro: General: patient oriented x3 and moves all extremities Cranial nerves: Yes Equal, round and reactive pupils present Extrem: General: Yes normal to inspection Right upper extremity: normal to inspection Left upper extremity: normal to inspection Right lower extremity: normal to inspection Left lower extremity: normal to inspection Course Course Course Narrative: This is an RME: Additional HPI, ROS, PE not included below will be deferred to primary provider. Patient is a 38-year-old female who presents emergency department for evaluation of skin swelling to the right eye. Reports this is a contact lens wearer, removed them yesterday due to the symptoms, today upon awakening she is having increasing pain, drainage, FB sensation. Plan: placed in WR pending bed availability for eye examination Reevaluation(s) Reevaluation #1: CBC with no leukocytosis, stable H&H, chemistry within normal limits. Orbital CT still pending. Patient's symptoms have improved after receiving IV Decadron. Given sign-out to Javid Youngblood PA-C pending CT orbits and fluoroscein stain if needed. Time: 20:02 Reevaluation #2: Fluorescein stain with a small abrasion to the 12 o'clock position of the right eye, negative Robbin sign, no corneal ulcer, orbits are in globes are within normal limits on CT no intraorbital mass is visualized. No orbital cellulitis noted. Will discharge patient with doxycycline and Keflex with erythromycin ointment. Discussed this case with my attending Dr. Pelaez who agrees w/ plan Time: 21:55 Medications Administered Discontinued Medications Generic Name Dose Route Start Last Admin Trade Name Peterq PRN Reason Stop Dose Admin Acetaminophen 975 mg 08/28/23 18:57 08/28/23 19:06 Acetaminophen 325 Mg Tablet PO 08/28/23 18:58 975 mg ONCE ONE Administration Dexamethasone Sodium Phosphate 10 mg 08/28/23 18:43 08/28/23 19:06 Dexamethasone Sod Phosphate 10 Mg/Ml Vial IVPUSH 08/28/23 18:44 10 mg ONCE ONE Administration Fluorescein Sodium 1 strip 08/28/23 16:01 08/28/23 21:43 Fluorescein Sodium Strip EYE-RIGHT 08/28/23 16:02 1 strip ONCE ONE Administration Fluorescein Sodium 1 strip 08/28/23 21:12 08/28/23 21:28 Fluorescein Sodium Strip EYE-BOTH 08/28/23 21:13 1 strip ONCE ONE Administration Iohexol 100 ml 08/28/23 19:27 08/28/23 19:31 Iohexol 350 Mg/Ml 100 Ml Infus..Btl IV 08/28/23 19:28 85 ml ONCE ONE Administration Ondansetron HCl 4 mg 08/28/23 18:57 08/28/23 19:06 Ondansetron Hcl 4 Mg/2 Ml Vial IVPUSH 08/28/23 18:58 4 mg ONCE ONE Administration Tetracaine HCl 1 drop 08/28/23 16:01 08/28/23 21:43 Tetracaine Hcl/Pf 0.5% Oph Laurita 4 Ml Drops EYE-RIGHT 08/28/23 16:02 1 drop ONCE ONE Administration Tetracaine HCl 3 drop 08/28/23 21:12 08/28/23 21:28 Tetracaine Hcl/Pf 0.5% Oph Laurita 4 Ml Drops EYE-BOTH 08/28/23 21:13 3 drop ONCE ONE Administration Medical Decision Making Medical Decision Making [facility] Narrative: 38-year-old female presenting to the emergency department for evaluation of right eye pain since this morning. She states that she noticed some discomfort last night when she was taking off her contact lens. She states that she woke up this morning in her eye was swollen shut. She states pain with extraocular movements. Concerning findings for orbital cellulitis versus periorbital cellulitis. Other differentials include glaucoma, corneal abrasion, laceration, conjunctivitis. On arrival, vital signs within normal limits. Patient endorsing photophobia. Would try to obtain intra-ocular pressures however Gabe-Pen is not available at this time. Plan: Visual acuity, Tylenol, Zofran, dexamethasone 10 mg IV push, eye examination, labs, CT orbit with IV contrast Differential Diagnosis Differential Diagnoses: The differential diagnosis associated with the presentation includes See above Admission/Observation Consideration of admission/observation: Escalation of care including admission/observation considered Patient would have been admitted to the hospital had her work up had any findings where hospital admission was appropriate and her clinical presentation warranted hospital admission. Lab Data [facility] Lab Attestation statement: I reviewed the patient's lab results. No leukocytosis, stable H&H 08/28/23 18:35 08/28/23 18:34 Labs: Lab Results 08/28/23 08/28/23 Range/Units 18:34 18:35 WBC 8.0 (4.8-10.8) X10*3/uL RBC 4.68 (4.20-5.50) X10*6/uL Hgb 13.0 (12.0-16.0) g/dl Hct 40.6 (37.0-47.0) % MCV 86.8 (80.0-98.0) fL MCH 27.8 (27.0-33.0) pg MCHC 32.0 (31.0-35.0) g/dl RDW 14.6 (11.0-16.0) % Plt Count 251 (160-400) X10*3/uL MPV 11.0 (9.4-12.3) fL Immature Gran % (Auto) 0.2 (0.0-0.4) % Neut % (Auto) 60.6 (45-73) % Lymph % (Auto) 32.1 (20-40) % [place] % (Auto) 3.9 (2-11) % Eos % (Auto) 3.0 (0-4) % Baso % (Auto) 0.2 (0-2) % Lymph # (Auto) 2.6 (1.2-4.9) X10*3/uL [place] # (Auto) 0.3 (0.1-1.2) X10*3/uL Eos # (Auto) 0.2 (0.0-0.4) X10*3/uL Baso # (Auto) 0.0 (0.0-0.2) X10*3/uL Abs Immat Gran (auto) 0.02 (0.00-0.03) X10*3/uL Absolute Neuts (auto) 4.9 (2.0-8.3) x10*3/uL Absolute Nucleated RBC 0.000 (0.0-0.012) X10*3/uL Nucleated RBC % (auto) 0.0 (0.0-0.2) /100WBC Sodium 141 (135-145) mmol/L Potassium 4.5 D (3.3-5.1) mmol/L Chloride 109 H (96-108) mmol/L Carbon Dioxide 24 (22-29) mmol/L Anion Gap 13 (12-20) BUN 11 (9-16) mg/dL Creatinine 0.60 (0.5-1.4) mg/dL Estim Creat Clear Calc 132.0 Estimated GFR > 60 Random Glucose 88 (60-115) mg/dL Calcium 9.5 D (8.4-10.2) mg/dL Total Bilirubin 0.4 (0.0-1.0) mg/dL Direct Bilirubin 0.1 (0.0-0.5) mg/dL AST 10 (5-31) U/L ALT 6 (0-31) U/L Alkaline Phosphatase 70 (39-117) U/L Total Protein 6.8 (6.5-8.0) g/dL Albumin 3.9 (3.5-5.0) g/dL Critical Care Time Critical Care Time Critical Care Time: No Discharge Plan Discharge Clinical Impression: Cellulitis, periorbital, Corneal abrasion Patient Disposition: Home, Self-Care Instructions: Cellulitis (ED), Corneal Abrasion (ED) Additional Instructions: Take your medications as prescribed. If you were prescribed antibiotics today, it is important that you take your medication to their entirety, do not skip any doses, do not finish them early. Follow-up with your primary care provider this week. Return to the emergency department with new or worsening symptoms. Such as fevers, chills, chest pain, shortness of breath, nausea, vomiting, dizziness, headache, vision changes, lethargy In case of emergency call 911 CT/CT orbit BI w IV con IMPRESSION: The orbits and globes are within normal limits. No intraorbital mass is visualized. Right greater than left staphyloma. Prescriptions: New doxycycline hyclate 100 mg capsule 100 mg PO BID 10 Days Qty: 20 0RF cephalexin 500 mg tablet 500 mg PO Q6H 10 Days Qty: 40 0RF erythromycin 5 mg/gram (0.5 %) ointment 1 appl ophthalmic (eye) TID 5 Days Qty: 3.5 0RF No Action duloxetine 30 mg capsule,delayed release(DR/EC) 30 mg PO DAILY ESSURE control vaginal fluticasone propionate [Flovent HFA] 110 mcg/actuation HFA aerosol inhaler 2 puff inhalation BID albuterol sulfate [Ventolin HFA] 90 mcg/actuation HFA aerosol inhaler 2 puff inhalation Q4H PRN (Reason: wheezing) pantoprazole 40 mg tablet,delayed release (DR/EC) 40 mg PO QAM 30 Days Qty: 30 2RF sucralfate 100 mg/mL suspension 10 ml PO BID 30 Days Qty: 600 2RF acetaminophen 500 mg/15 mL liquid 500 mg PO Q6H PRN (Reason: fever or pain) Qty: 237 2RF Reguloid (psyllium husk) 3 gram/5.4 gram powder 1 tbsp PO DAILY Qty: 426 3RF Rx Instructions: mix into at least 8 oz of water or juice before administering docusate sodium [Colace] 100 mg capsule 100 mg PO BID Qty: 60 5RF Referrals: Dell Martinez [Physician] - 2 days Stand Alone Forms: Work/School Release
[2023-08-28 17:16] VITALS: BP 135/86; PULSE 82; RESP 16; TEMP 36.2; O2SAT 98
[2023-08-28 18:40] LABS: MANUAL DIFF FLAG NO
[2023-08-28 18:41] LABS: Basophils Percent Auto 0.2 % (0-2); Eosinophils Absolute Auto 0.2 X10*3/uL (0.0-0.4); Hematocrit 40.6 % (37.0-47.0); Imm Gran Abs Auto 0.02 X10*3/uL (0.00-0.03); Imm Gran Pct Auto 0.2 % (0.0-0.4); Lymphocytes Absolute Auto 2.6 X10*3/uL (1.2-4.9); Lymphocytes Percent Auto 32.1 % (20-40); Mean Corpuscular Hemoglobin 27.8 pg (27.0-33.0); Mean Corpuscular Volume 86.8 fL (80.0-98.0); Monocytes Absolute Auto 0.3 X10*3/uL (0.1-1.2); Monocytes Percent Auto 3.9 % (2-11); Neutrophils Absolute Auto 4.9 x10*3/uL (2.0-8.3); Neutrophils Percent Auto 60.6 % (45-73); Platelet Count 251 X10*3/uL (160-400); Red Blood Count 4.68 X10*6/uL (4.20-5.50); Red Cell Distribution Width 14.6 % (11.0-16.0)
[2023-08-28 18:56] LABS: Alanine Aminotransferase 6 U/L (0-31); Albumin Level 3.9 g/dL (3.5-5.0); Alkaline Phosphatase 70 U/L (39-117); Anion Gap 13 (12-20); Aspartate Amino Transferase 10 U/L (5-31); Bilirubin Direct 0.1 mg/dL (0.0-0.5); Bilirubin Total 0.4 mg/dL (0.0-1.0); Blood Urea Nitrogen 11 mg/dL (9-16); Calcium 9.5 mg/dL (8.4-10.2); Carbon Dioxide 24 mmol/L (22-29); Chloride 109 mmol/L (96-108); Estimated Glomerular Filt Rate > 60; Glucose Random 88 mg/dL (60-115); Potassium 4.5 mmol/L (3.3-5.1); Sodium 141 mmol/L (135-145); Total Protein 6.8 g/dL (6.5-8.0)
[2023-08-28] MEDS: ondansetron HCL 4 MG/2 ML VIAL IVPUSH (19:06)
[2023-08-28] MEDS: Acetaminophen 325 MG TABLET 975 MG PO (19:06)
[2023-08-28] MEDS: dexAMETHasone sod phosphate 10 MG/ML VIAL IVPUSH (19:06)
[2023-08-28] MEDS: iohexoL 350 MG/ML 100 ML INFUS..BTL IV (19:31)
[2023-08-28 20:56] VITALS: BP 142/81; PULSE 77; RESP 19; TEMP 36.7; O2SAT 98
[2023-08-28] MEDS: Tetracaine HCl/PF 0.5% Oph Sol 4 ML DROPS 3 DROP EYE-BOTH (21:28)
[2023-08-28] MEDS: Fluorescein Sodium STRIP 1 STRIP EYE-BOTH (21:28)
[2023-08-28] MEDS: Tetracaine HCl/PF 0.5% Oph Sol 4 ML DROPS 1 DROP EYE-RIGHT (21:43)
[2023-08-28] MEDS: Fluorescein Sodium STRIP 1 STRIP EYE-RIGHT (21:43)
[2023-08-28] MEDS: Erythromycin Base 0.5% Oph Oin 1 GM TUBE 1 CM EYE-BOTH (22:04)
== END 2023-08-28 22:09 | disposition home or self-care (01) ==
PROVIDERS: Physician Assistant Medical; Emergency Provider Internal Medicine; PCP General Practice
DX: L03.213 Periorbital cellulitis (principal); H18.821 Corneal disorder due to contact lens, right eye; H57.11 Ocular pain, right eye
CPT/HCPCS: 36415; 70481; 80048; 80076; 85025; 96374; 96375; 99284; J1100; J2405; Q9967

== ENCOUNTER 2023-09-17 16:45 | Outpatient (REF) | payer MEDICAID, SELFPAY ==
[2023-09-17 18:09] LABS: Erythrocyte Sedimentation Rate 20 MM/HR (0-20)
[2023-09-17 18:50] LABS: Magnesium 2.3 mg/dL (1.6-2.6)
== END 2023-09-17 16:46 | disposition home or self-care (01) ==
LOC: HO.HHCL 16:45
PROVIDERS: Visit Provider General Practice
DX: R76.0 Raised antibody titer (principal)
CPT/HCPCS: 36415; 83735; 84443; 85652

== ENCOUNTER 2023-10-14 10:35 | Outpatient (REF) | payer MEDICAID, SELFPAY ==
--- NOTE | ~2023-10-14 | US_ITS ---
EXAMINATION: US PELVIS CLINICAL INFORMATION: Complex right ovarian cyst. COMPARISON: Pelvic ultrasound 04/08/2023. TECHNIQUE: A very limited ultrasound of the pelvis is performed using both transabdominal and transvaginal transducers along with Doppler. Transvaginal imaging is performed due to inadequate visualization transabdominally. Only the right ovary was evaluated. The uterus was not imaged. FINDINGS: The right ovary measures 2.2 x 3.1 x 1.8 cm for a volume of 6.3 mL. 2 small adjacent cysts (or a single cyst with a septation) are present measuring a total of 1.1 x 0.7 x 0.7 mL. The left ovary was surgically removed. US/US pelvic and transvaginal IMPRESSION: 1. 2 small adjacent cysts or a single cyst with a septation are present in the right ovary. No further follow-up is needed. 2. The left ovary was surgically removed.
== END 2023-10-14 10:36 | disposition home or self-care (01) ==
LOC: HO.US 10:35
PROVIDERS: PCP General Practice; Visit Provider Obstetrics & Gynecology
DX: D25.9 Leiomyoma of uterus, unspecified (principal); N83.299 Other ovarian cyst, unspecified side
CPT/HCPCS: 76830; 76856

== ENCOUNTER 2023-11-03 09:19 | Outpatient (AMB) | payer MEDICAID, SELFPAY ==
--- NOTE | 2023-11-03 09:22 | A.OFFVIS_ITS ---
Intake Vital Signs 11/03/23 09:24 Height 5 ft 2 in Weight 189 lb 9.561 oz BMI 34.7 BP 122/80 Intake Visit Reasons: US Follow up/DO NOT RS Python Web Developer Required: No Information Interpreted: non-clinical & clinical Accompanied by: Daughter Allergies sertraline [From Zoloft] Allergy (Intermediate, Verified 11/03/23 09:25) Hives latex Allergy (Mild, Verified 11/03/23 09:25) Hives Is last menstrual period known: No (hysterectomy) HPI HPI Comments History of Present Illness Details Presenting for ultrasound follow-up. Pelvic ultrasound showed the following: The right ovary measures 2.2 x 3.1 x 1.8 cm for a volume of 6.3 mL. 2 small adjacent cysts (or a single cyst with a septation) are present measuring a total of 1.1 x 0.7 x 0.7 mL. The left ovary was surgically removed COUNTS INCLUDE 234 BEDS AT THE [facility] Medical History (Updated 11/03/23 @ 09:36 by Rupert Hobson MD) History of female sterilization GENESIS on CPAP Hx of abnormal cervical Pap smear Well woman exam with routine gynecological exam Screen for sexually transmitted diseases Pre-op evaluation Obesity due to excess calories Depression Anxiety Arthritis Carpal tunnel syndrome Asthma Surgical History (Updated 11/03/23 @ 09:36 by Rupert Hobson MD) H/O hysterectomy for benign disease Hx of hysterectomy Hx of skin graft Family History Mother Diabetes Hypertension High cholesterol Father No problems noted. Sister ADHD Scoliosis Sister No problems noted. Sister No problems noted. Sister No problems noted. Sister No problems noted. Brother No problems noted. Daughter No problems noted. Daughter ADHD PTSD (post-traumatic stress disorder) Daughter No problems noted. Daughter No problems noted. Son No problems noted. Son No problems noted. 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 Reproductive History Menstrual Age of Menarche: 13 Review of Systems Const All systems reviewed & are unremarkable except as noted in HPI and below Reports as per HPI and Reports no additional complaints GI Reports no additional complaints Reports no additional complaints Physical Exam Vital Signs: Last Vital Signs BP 122/80 11/03/23 09:24 BMI result Body Mass Index 34.7 Assessment & Plan Assessment & Plan (1) Ovarian cyst: Comment: Right Code(s): N83.209 - Unspecified ovarian cyst, unspecified side Plan: Discussed with the patient the right ovarian cyst by ultrasound showing either 2 simple cysts or 1 cyst with septation. Discussed with the patient the Ultrasound findings, the main limitation of transvaginal ultrasonography alone as a diagnostic tool to distinguish benign from malignant masses relates to its lack of specificity and low positive predictive value for cancer. The differential diagnosis discussed with the patient includes the following but not limited to: benign and malignant gynecological and non-gynecological causes. Will repeat US in repeating pelvic US in 12 weeks from previous US. If the ovarian cyst is persistent larger and / or more complex looking, will refer to gynecologic Oncology. Instructions given the patient to schedule a 3 months follow-up ultrasound appointment. All questions were answered & the patient verbalized understanding and agreed with the plan. Orders: Orders US pelvic and transvaginal 3 Months N83.209 - Unspecified ovarian cyst, unspecified side Coding Level of Care Code Est Pt Level 3 (42915) Diagnoses Ovarian cyst N83.209
[2023-11-03 09:24] VITALS: BP 122/80; BMI 34.7
== END 2023-11-03 09:44 | disposition home or self-care (01) ==
LOC: HO.HWS 09:19
PROVIDERS: PCP General Practice; Visit Provider Obstetrics & Gynecology
DX: N83.209 Unspecified ovarian cyst, unspecified side (principal)
CPT/HCPCS: 99213

== ENCOUNTER → 2023-11-03 09:19 | Outpatient (BNVA) | payer MEDICAID, SELFPAY | PROVIDERS: PCP General Practice; Visit Provider Obstetrics & Gynecology | DX: N83.209 Unspecified ovarian cyst, unspecified side (principal) | CPT/HCPCS: 99212 ==

== ENCOUNTER 2024-01-26 14:54 | Outpatient (AMB) | payer MEDICAID, SELFPAY ==
--- NOTE | 2024-01-26 15:00 | A.OFFVIS_ITS ---
Intake Vital Signs 01/26/24 15:07 Height 5 ft 2 in Weight 186 lb 15.232 oz BMI 34.2 BP 114/68 Blood Pressure Location Rt brachial Position Sitting Pulse 70 Pulse Source Pulse Oximeter Pulse Oximetry (%) 97 Oxygen Delivery Method Room Air Intake Visit Reasons: Lupus/LVM Intake Note: New patient presents today for SLE consult, referred by PCP Nika Bassett C/o pain in multiple joints, morning stiffness. Symptoms started approx 2 years ago Has tried tylenol and NSAIDS; marijuana to help with pain/sleep. Belt Builder Required: No Accompanied by: Daughter Allergies sertraline [From Zoloft] Allergy (Intermediate, Verified 01/26/24 15:09) Hives latex Allergy (Mild, Verified 01/26/24 15:09) Hives Medication List - Last Reconciled 01/26/24 by Doris Bar MD acetaminophen 500 mg (15 mL) PO Q6H PRN albuterol sulfate 90 mcg/actuation (Ventolin HFA) 2 puffs inhalation Q4H PRN docusate sodium (Colace) 100 mg PO BID duloxetine 30 mg PO DAILY [ESSURE control vaginal] fluticasone propionate 110 mcg/actuation (Flovent HFA) 2 puffs inhalation BID pantoprazole 40 mg PO QAM 30 days psyllium husk (Reguloid (psyllium husk)) 1 tbsp PO DAILY sucralfate 10 mL PO BID 30 days HPI HPI Comments History of Present Illness Details 38-year-old female presents for evaluati on of a positive HOWARD. The condition started approximately 2 years ago with pain all over her body. Pain is in her muscles and joints. She has pain in her back, hands, some days she would have generalized morning stiffness for about 30 minutes. She would not be able to get out of bed. There was a period of time when she was having significant bilateral heel pain and she could not put a step on the floor. She states that she gets intermittent rashes on her arms, there are usually worse in the summer,, usually itchy. She states that when she saw her PCP last year she was told that she has a butterfly rash. She denies any fevers or weight loss. She denies any blood or frothy urine. She states that her hands are always cold. And they are purple in the cold. She had 9 pregnancies in total, 6 children and 3 abortions. She denies any history of DVT/PE. She has a paternal grandmother with SLE. [facility] Medical History History of female sterilization GENESIS on CPAP Hx of abnormal cervical Pap smear Well woman exam with routine gynecological exam Screen for sexually transmitted diseases Pre-op evaluation Obesity due to excess calories Depression Anxiety Arthritis Carpal tunnel syndrome Asthma Surgical History H/O hysterectomy for benign disease Hx of hysterectomy Hx of skin graft Family History Mother Diabetes Hypertension High cholesterol Father No problems noted. Sister ADHD Scoliosis Sister No problems noted. Sister No problems noted. Sister No problems noted. Sister No problems noted. Brother No problems noted. Daughter No problems noted. Daughter ADHD PTSD (post-traumatic stress disorder) Daughter No problems noted. Daughter No problems noted. Son No problems noted. Son No problems noted. 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 Reproductive History Menstrual Age of Menarche: 13 Total pregnancies: 9 Number of Living Children: 6 Ab induced: 3 Review of Systems Const Reports fatigue, Reports headache(s) and Reports weakness Eyes Reports blurry vision, Reports dry eyes and Reports itchy eyes ENT Reports dysphagia, Reports dizziness, Reports dry mouth, Reports headache(s) and Reports tinnitus Card Reports dyspnea Resp Reports cough, Reports dyspnea and Reports wheezing GI Reports constipation, Reports dysphagia, Reports heartburn and Reports diarrhea Musc Reports arthralgias, Reports muscle weakness and Reports stiffness Skin/Breast Reports pruritus, Reports lesions, Reports rash and Reports unusual bruising Neuro Reports dizziness, Reports headache(s), Reports memory loss and Reports weakness Psych Reports anxiety, Reports depression and Reports memory loss Endo Reports fatigue Aller/Immun Reports itchy eyes and Reports wheezing Physical Exam Vital Signs: Last Vital Signs Pulse 70 01/26/24 15:07 BP 114/68 01/26/24 15:07 Pulse Ox 97 01/26/24 15:07 Oxygen Delivery Method Room Air 01/26/24 15:07 BMI result Body Mass Index 34.2 Const General: cooperative, healthy appearing and comfortable Nutritional Appearance: obese Orientation/consciousness: patient oriented x3 Limitations: no limitations HEENT Head: Yes normocephalic and Yes atraumatic Mouth: moist mucous membranes Resp Effort & Inspection: normal respiratory effort and able to speak in complete sentences Auscultation: clear to auscultation bilaterally Cardio Rate: regular rate Rhythm: regular rhythm GI Palpation (GI): Soft to palpation and nontender Skin General skin exam: no rashes or lesions noted Neuro General: patient oriented x3 Extrem Other: No active synovitis Few fibromyalgia tender points Mild hyperflexibility of thumbs Normal nailfold capillaroscopy Mild right knee pain with full extension Left trochanteric bursa area tenderness Assessment & Plan Assessment & Plan (1) HOWARD positive: Code(s): R76.8 - Other specified abnormal immunological findings in serum Plan: This is a 38-year-old female who presents for evaluation of a positive HOWARD. Will order comprehensive serology to screen for underlying autoimmune rheumatic disease. Follow-up in about 4 weeks Plan I spent 46 minutes reviewing patient's chart, evaluating patient, ordering diagnostic workup, counseling patient and documenting in the chart Orders: Orders Anti Extractable Nuclear Ag Today M32.9 - Systemic lupus erythematosus, unspecified Anti DNA DS Antibody Today M32.9 - Systemic lupus erythematosus, unspecified Complement C3 Today M32.9 - Systemic lupus erythematosus, unspecified C Reactive Protein Today M32.9 - Systemic lupus erythematosus, unspecified Erythrocyte Sedimentation Rate Today M32.9 - Systemic lupus erythematosus, unspecified Sjogren's Antibodies Today M32.9 - Systemic lupus erythematosus, unspecified Free T4 (Free Thyroxine) Today R53.83 - Other fatigue Thyroid Stimulating Hormone Today R53.83 - Other fatigue Protein Electrophoresis, Serum Today M32.9 - Systemic lupus erythematosus, unspecified Rheumatoid Factor Today M25.50 - Pain in unspecified joint Cyclic Citrullinated Peptide Today M25.50 - Pain in unspecified joint Complement C4 Today M32.9 - Systemic lupus erythematosus, unspecified DNA Double Stranded-Crithidia Today M32.9 - Systemic lupus erythematosus, unspecified Protein Creatinine Ratio, Ur Today M32.9 - Systemic lupus erythematosus, unspecified UA w Microscopic Today M32.9 - Systemic lupus erythematosus, unspecified Complete Blood Count Auto Diff Today M32.9 - Systemic lupus erythematosus, unspecified Comprehensive Met. Panel Today M32.9 - Systemic lupus erythematosus, unspecified Hepatitis A,B,C Profile Today Z11.59 - Encounter for screening for other viral diseases Immunofixation Pnl, Serum Today M32.9 - Systemic lupus erythematosus, unspecified Coding Level of Care Code New Pt Level 4 (73196) Diagnoses HOWARD positive R76.8
[2024-01-26 15:07] VITALS: BP 114/68; PULSE 70; O2SAT 97; BMI 34.2
== END 2024-01-26 15:29 | disposition home or self-care (01) ==
PROVIDERS: PCP General Practice; Referring Provider General Practice; Visit Provider Student in an Organized Health Care Education/Training Program
DX: R76.8 Other specified abnormal immunological findings in serum (principal)
CPT/HCPCS: 99204

== ENCOUNTER 2024-01-26 14:54 | Outpatient (REF) | payer MEDICAID, SELFPAY ==
[2024-01-26 15:52] LABS: MANUAL DIFF FLAG NO
[2024-01-26 16:15] LABS: Appearance Urine Clear; Color Urine Yellow; Glucose Urine UA Negative (Negative); Leukocyte Esterase Urine Negative (Negative); Nitrite Urine Negative (Negative); PH 5.5 (5.0-9.0); Specific Gravity - Urine >= 1.030 (1.005-1.025); Urine Blood Negative (Negative); Urine Ketones Negative (Negative); Urine Protein Negative (Neg-Trace)
[2024-01-26 16:16] LABS: Basophils Percent Auto 0.3 % (0-2); Eosinophils Absolute Auto 0.2 X10*3/uL (0.0-0.4); Eosinophils Percent Auto 2.8 % (0-4); Hematocrit 42.6 % (37.0-47.0); Hemoglobin 13.6 g/dl (12.0-16.0); Imm Gran Abs Auto 0.02 X10*3/uL (0.00-0.03); Imm Gran Pct Auto 0.3 % (0.0-0.4); Lymphocytes Absolute Auto 3.6 X10*3/uL (1.2-4.9); Lymphocytes Percent Auto 50.1 % (20-40); Mean Corpuscular HGB Conc 31.9 g/dl (31.0-35.0); Mean Corpuscular Hemoglobin 27.9 pg (27.0-33.0); Mean Corpuscular Volume 87.5 fL (80.0-98.0); Mean Platelet Volume 10.9 fL (9.4-12.3); Monocytes Absolute Auto 0.4 X10*3/uL (0.1-1.2); Monocytes Percent Auto 5.2 % (2-11); Neutrophils Percent Auto 41.3 % (45-73); Platelet Count 268 X10*3/uL (160-400); Red Blood Count 4.87 X10*6/uL (4.20-5.50); Red Cell Distribution Width 14.2 % (11.0-16.0); White Blood Count 7.1 X10*3/uL (4.8-10.8)
[2024-01-26 16:20] LABS: Bacteria Urine None Seen (None Seen); Hyaline Casts Urine 0-2 /LPF (0-2); RBC Urine 0-2 /HPF (0-2); Squamous Epithelial Cell Urine 0-2 /HPF (0-2); WBC Urine 0-5 /HPF (0-5)
[2024-01-26 16:41] LABS: Alanine Aminotransferase 10 U/L (0-31); Albumin Level 4.3 g/dL (3.5-5.0); Alkaline Phosphatase 84 U/L (39-117); Anion Gap 9 (12-20); Aspartate Amino Transferase 13 U/L (5-31); Bilirubin Total 0.2 mg/dL (0.0-1.0); Blood Urea Nitrogen 14 mg/dL (9-16); C Reactive Protein 0.26 mg/dL (< or = 0.50); Calcium 9.3 mg/dL (8.4-10.2); Carbon Dioxide 27 mmol/L (22-29); Chloride 107 mmol/L (96-108); Estimated Glomerular Filt Rate > 60; Glucose Random 74 mg/dL (60-115); Potassium 3.8 mmol/L (3.3-5.1); Rheumatoid Factor < 13.0 IU/mL (<15.0); Sodium 139 mmol/L (135-145); Total Protein 7.4 g/dL (6.5-8.0)
[2024-01-26 16:57] LABS: Erythrocyte Sedimentation Rate 13 MM/HR (0-20)
[2024-01-26 16:59] LABS: Free T4 (Free Thyroxine) 0.83 ng/dL (0.71-1.85); Thyroid Stimulating Hormone 0.88 uIU/mL (0.32-4.0)
[2024-01-26 17:01] LABS: Total Protein Urine Random < 7 mg/dL (<12)
[2024-01-27 06:55] LABS: HBS Num1 91.26 mIU/mL (0-7.99); HBc Num1 0.05 S/CO (0.00-0.79); Hepatitis A Antibody IgM 0.24 Index (0-0.79); Hepatitis B Core Antibody Nonreactive (Nonreactive); Hepatitis B Surface Antigen Negative (Negative); ~HepC Num1 0.12 S/CO (0.00-0.79); ~Hepatitis A Antibody IgM Nonreactive (Nonreactive); ~Hepatitis B Surface Antibody REACTIVE (Nonreactive); ~Hepatitis C Antibody Nonreactive (Nonreactive)
[2024-01-27 14:38] LABS: Cyclic Citrullinated Peptide <16 UNITS
[2024-01-27 22:23] LABS: Prot Elec - Albumin 4.1 g/dL (3.8-4.8); Prot Elec - Alpha1 0.3 g/dL (0.2-0.3); Prot Elec - Alpha2 0.8 g/dL (0.5-0.9); Prot Elec - Beta 1 0.5 g/dL (0.4-0.6); Prot Elec - Beta 2 0.4 g/dL (0.2-0.5)
[2024-01-28 11:58] LABS: IgA 196 mg/dL (47-310); IgG 1091 mg/dL (600-1640); IgM 113 mg/dL (50-300)
[2024-01-28 23:08] LABS: Anti DNA DS Antibody 3 IU/mL; Antibody to SS-A Antigen <1.0 NEG AI (<1.0 NEG); Antibody to SS-B Antigen <1.0 NEG AI (<1.0 NEG); SM/Ribonucleoprotein Ab <1.0 NEG AI (<1.0 NEG); Smith Protein <1.0 NEG AI (<1.0 NEG)
[2024-01-29 01:58] LABS: Complement C3 140 mg/dL (83-193)
[2024-01-30 14:58] LABS: DNAds, Crithidia Antibody Negative (Negative)
== END 2024-01-26 14:55 | disposition home or self-care (01) ==
LOC: HO.LAB 14:54
PROVIDERS: PCP General Practice; Visit Provider Student in an Organized Health Care Education/Training Program
DX: M32.9 Systemic lupus erythematosus, unspecified (principal); M25.50 Pain in unspecified joint; M79.10 Myalgia, unspecified site; R76.8 Other specified abnormal immunological findings in serum; R53.83 Other fatigue; Z11.59 Encounter for screening for other viral diseases; Z79.899 Other long term (current) drug therapy
CPT/HCPCS: 36415; 80053; 81001; 82570; 82784; 84156; 84165; 84439; 84443; 85025; 85652; 86140; 86160; 86200; 86225; 86235; 86255; 86334; 86431; 86704; 86706; 86709; 86803; 87340; 99202

== ENCOUNTER 2024-01-27 10:00 | Outpatient (REF) | payer MEDICAID, SELFPAY ==
--- NOTE | ~2024-01-27 | US_ITS ---
EXAMINATION: US PELVIS CLINICAL INFORMATION: Pelvic pain, status post hysterectomy. Left ovary is surgically absent. COMPARISON: Pelvic ultrasound 10/14/2023, 04/08/2023. TECHNIQUE: Ultrasound of the pelvis is performed using both transabdominal and transvaginal transducers along with Doppler. Transvaginal imaging is performed due to inadequate visualization transabdominally. FINDINGS: The uterus is surgically absent. Left ovary is surgically absent. Limited visualization due to bowel gas. Right ovary measures 3.5 x 2.1 x 2.9 cm, volume 11.3 mL. Right ovary previously measured 2.2 x 3.1 x 1.8 cm, volume 6.3 mL. Multiple small right ovarian follicles identified. Previous exam demonstrated 2 adjacent cysts versus a single cyst with septation with overall measurement of 1.1 x 0.7 x 0.7 cm on 10/14/2023. No significant free fluid. US/US pelvic and transvaginal IMPRESSION: 1. Uterus and left ovary are surgically absent. 2. Right ovary measures 3.5 x 2.1 x 2.9 cm, volume 11.3 mL. Multiple small right ovarian follicles identified. Previous exam demonstrated 2 adjacent cysts versus a single cyst with septation with overall measurement of 1.1 x 0.7 x 0.7 cm on 10/14/2023.
== END 2024-01-27 10:01 | disposition home or self-care (01) ==
LOC: HO.US 10:00
PROVIDERS: PCP General Practice; Visit Provider Obstetrics & Gynecology
DX: N83.209 Unspecified ovarian cyst, unspecified side (principal)
CPT/HCPCS: 76830; 76856

== ENCOUNTER 2024-01-28 13:00 | Outpatient (RCR) | payer MEDICAID, SELFPAY ==
--- NOTE | 2023-12-29 10:02 | MHC.PT.EP ---
[facility] [place] Office [place] Office [place] Office [address] [phone] F: [phone] F: [phone] F: [phone] F: [phone] Physical Therapy Plan of Care Date of Evaluation: 12/29/23 Date of Surgery: Diagnosis: acute bilateral LBP with L sciatica (MD notes; LBP, rapid wt loss s/p bariatric surgery) Assessment: Patient is a pleasant 38 y.o. female who is referred to PT by Lashae Salcdeo MD, with Dx of acute bilateral LBP with L sciatica MD note indicates LBP, rapid wt loss s/p bariatric surgery. Patient presents with muscle imbalances in L hip and low back. Patient impairments include poor posture, poor lifting mechanics, limited lumbar AROM, limited hip and core strength, pain and radicular sxs. Patient current functional limitations are prolonged sitting, standing from prolonged sitting, walking (tends to limp), ascend/descend flights of stairs, bend/squat, don/doff shoes and socks. Patient will benefit from skilled PT to address aforementioned impairments and functional limitations to meet established goals. Frequency and Duration: The patient will be seen 2x/week for 4 weeks Short Term Goals: 2 weeks Patient demonstrates consistency and independence with HEP to self manage symptoms. Patient is able to demonstrate proper squat for floor to waist lifting without cues. Custodial Goals: 4 weeks Patient presents with increased L hip glute strength 4+/5 to be able to perform reciprocal stairs at home. Patient presents with increased lumbar spine flexion AROM 90 degrees to be able to don/doff shoes/socks without difficulty. Treatment Plan: Modalities to reduce pain, spasms and effusion. Manual therapy to restore motion and function. Therapeutic exercise to improve strength and flexibility. Neuromuscular re-education for posture and balance. Therapeutic activities to return to functional activities of daily living. Electronically signed by: Eva Cowan, PT, DPT Please sign and return to therapist. Thank you for your referral.
--- NOTE | 2024-01-28 14:39 | MHC.PT.DC ---
[facility] [place] Office [place] Office [place] Office [address]ish Panda [address] [phone] F: [phone] F: [phone] F: [phone] F: [phone] Physical Therapy Discharge Report Diagnosis: acute bilateral LBP with L sciatica (MD notes; LBP, rapid wt loss s/p bariatric surgery) Date of Surgery: Date of Evaluation: 12/29/23 Date of Discharge: 01/28/24 Treatments to Date: 8 Cancellations to Date: No Shows to Date: Discharge Status: Improved Function Independent with HEP Discharge Summary: Alethea reports she feels ready for discharge from PT today as she knows the exercises now to continue to help her sxs. I encourage her that she was able to make a positive different in the pain she came in with by doing the exercises. She is able to demonstrate great form with floor to waist lift of 5lb crate. Electronically signed by: Eva Cowan, PT, DPT Please sign and return to therapist. Thank you for your referral.
== END 2024-01-28 14:39 | disposition home or self-care (01) ==
LOC: HO.PT 13:00
PROVIDERS: PCP General Practice; Visit Provider Internal Medicine
DX: M54.42 Lumbago with sciatica, left side (principal)
CPT/HCPCS: 97110; 97161; 97530

== ENCOUNTER 2024-02-09 11:23 | Outpatient (AMB) | payer MEDICAID, SELFPAY ==
--- NOTE | 2024-02-09 11:52 | MHC.OFFVIS ---
Intake Vital Signs 02/09/24 11:54 Height 5 ft 2 in Weight 187 lb BMI 34.2 BP 120/80 Intake Visit Reasons: US follow up Accounts Payable Manager Required: No Accompanied by: Daughter Allergies sertraline [From Zoloft] Allergy (Intermediate, Verified 02/09/24 11:54) Hives latex Allergy (Mild, Verified 02/09/24 11:54) Hives Is last menstrual period known: No HPI HPI Comments History of Present Illness Details Presenting for ultrasound follow-up regarding possible ovarian cyst with septation seen on a previous ultrasound in 10/23. Recent ultrasound done in 01/22 showed the following: IMPRESSION: 1. Uterus and left ovary are surgically absent. 2. Right ovary measures 3.5 x 2.1 x 2.9 cm, volume 11.3 mL. Multiple small right ovarian follicles identified. Previous exam demonstrated 2 adjacent cysts versus a single cyst with septation with overall measurement of 1.1 x 0.7 x 0.7 cm on 10/14/2023. FORMERLY [facility], [facility] Medical History History of female sterilization GENESIS on CPAP Hx of abnormal cervical Pap smear Well woman exam with routine gynecological exam Screen for sexually transmitted diseases Pre-op evaluation Obesity due to excess calories Depression Anxiety Arthritis Carpal tunnel syndrome Asthma Surgical History H/O hysterectomy for benign disease Hx of hysterectomy Hx of skin graft Family History Mother Diabetes Hypertension High cholesterol Father No problems noted. Sister ADHD Scoliosis Sister No problems noted. Sister No problems noted. Sister No problems noted. Sister No problems noted. Brother No problems noted. Daughter No problems noted. Daughter ADHD PTSD (post-traumatic stress disorder) Daughter No problems noted. Daughter No problems noted. Son No problems noted. Son No problems noted. 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 Reproductive History Menstrual Age of Menarche: 13 control method: permanent sterilization Review of Systems Const All systems reviewed & are unremarkable except as noted in HPI and below Reports as per HPI and Reports no additional complaints GI Reports no additional complaints Reports no additional complaints Physical Exam Vital Signs: Last Vital Signs BP 120/80 02/09/24 11:54 BMI result Body Mass Index 34.2 Assessment & Plan Assessment & Plan (1) Ovarian cyst: Comment: Right Code(s): N83.209 - Unspecified ovarian cyst, unspecified side Plan: Discussed with the patient ultrasound findings showing the previously identified possible cyst septation is no longer present. The patient was instructed to call if symptoms recur. All questions were answered the patient verbalized understanding. Coding Level of Care Code Est Pt Level 3 (78710) Diagnoses Ovarian cyst N83.209
[2024-02-09 11:54] VITALS: BP 120/80; BMI 34.2
== END 2024-02-09 12:04 | disposition home or self-care (01) ==
PROVIDERS: PCP General Practice; Referring Provider General Practice; Visit Provider Obstetrics & Gynecology
DX: N83.209 Unspecified ovarian cyst, unspecified side (principal)
CPT/HCPCS: 99213

== ENCOUNTER → 2024-02-09 11:23 | Outpatient (BNVA) | payer MEDICAID, SELFPAY | PROVIDERS: PCP General Practice; Visit Provider Obstetrics & Gynecology | DX: N83.201 Unspecified ovarian cyst, right side (principal) | CPT/HCPCS: 99212 ==

== ENCOUNTER 2024-02-23 12:36 | Outpatient (AMB) | payer MEDICAID, SELFPAY ==
--- NOTE | 2024-02-23 12:37 | A.OFFVIS_ITS ---
Vital Signs 02/23/24 12:39 Height 5 ft 2 in Weight 242 lb 8.136 oz BMI 44.4 BP 132/86 Blood Pressure Location Rt brachial Position Sitting Pulse 77 Pulse Source Pulse Oximeter Pulse Oximetry (%) 98 Oxygen Delivery Method Room Air Intake Visit Reasons: HOWARD+ve, Follow up after lab Software Consultant Required: No Allergies sertraline [From Zoloft] Allergy (Intermediate, Verified 02/09/24 11:54) Hives latex Allergy (Mild, Verified 02/09/24 11:54) Hives Medication List - Last Reconciled 02/23/24 by Leyda Jewell LPN acetaminophen 500 mg (15 mL) PO Q6H PRN albuterol sulfate 90 mcg/actuation (Ventolin HFA) 2 puffs inhalation Q4H PRN docusate sodium (Colace) 100 mg PO BID duloxetine 30 mg PO DAILY fluticasone propionate 110 mcg/actuation (Flovent HFA) 2 puffs inhalation BID HPI Comments Details: Patient returns for follow-up after completion of her diagnostic workup. Continues to feel about the same. Sore muscles all over. Intermittent swelling of her fingers, usually in the morning that rapidly resolves Initial history: 38-year-old female presents for evaluation of a positive HOWARD. The condition started approximately 2 years ago with pain all over her body. Pain is in her muscles and joints. She has pain in her back, hands, some days she would have generalized morning stiffness for about 30 minutes. She would not be able to get out of bed. There was a period of time when she was having significant bilateral heel pain and she could not put a step on the floor. She states that she gets intermittent rashes on her arms, there are usually worse in the summer,, usually itchy. She states that when she saw her PCP last year she was told that she has a butterfly rash. She denies any fevers or weight loss. She denies any blood or frothy urine. She states that her hands are always cold. And they are purple in the cold. She had 9 pregnancies in total, 6 children and 3 abortions. She denies any history of DVT/PE. She has a paternal grandmother with SLE. [facility] Medical History History of female sterilization GENESIS on CPAP Hx of abnormal cervical Pap smear Well woman exam with routine gynecological exam Screen for sexually transmitted diseases Pre-op evaluation Obesity due to excess calories Depression Anxiety Arthritis Carpal tunnel syndrome Asthma Surgical History H/O hysterectomy for benign disease Hx of hysterectomy Hx of skin graft Family History Mother Diabetes Hypertension High cholesterol Father No problems noted. Sister ADHD Scoliosis Sister No problems noted. Sister No problems noted. Sister No problems noted. Sister No problems noted. Brother No problems noted. Daughter No problems noted. Daughter ADHD PTSD (post-traumatic stress disorder) Daughter No problems noted. Daughter No problems noted. Son No problems noted. Son No problems noted. 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 Reproductive History Menstrual Age of Menarche: 13 Review of Systems Const Reports fatigue Musc Reports arthralgias, Reports muscle weakness and Reports stiffness Skin/Breast Reports pruritus, Reports lesions, Reports rash and Reports unusual bruising Psych Reports anxiety and Reports depression Endo Reports fatigue Physical Exam Vital Signs: Last Vital Signs Pulse 77 02/23/24 12:39 BP 132/86 02/23/24 12:39 Pulse Ox 98 02/23/24 12:39 Oxygen Delivery Method Room Air 02/23/24 12:39 BMI result Body Mass Index 44.4 Const General: cooperative, healthy appearing and comfortable Nutritional Appearance: obese Orientation/consciousness: patient oriented x3 Limitations: no limitations HEENT Head: Yes normocephalic and Yes atraumatic Mouth: moist mucous membranes Resp Effort & Inspection: normal respiratory effort and able to speak in complete sentences Cardio Rate: regular rate Rhythm: regular rhythm GI Palpation (GI): Soft to palpation and nontender Skin General skin exam: no rashes or lesions noted Neuro General: patient oriented x3 Extrem Other: No active synovitis Few fibromyalgia tender points (bilateral arms and right thigh) Mild hyperflexibility of thumbs Normal nailfold capillaroscopy Mild right knee pain with full extension Assessment & Plan Assessment & Plan (1) HOWARD positive: Code(s): R76.8 - Other specified abnormal immunological findings in serum Category: Medical Plan: This is a 39-year-old female who presents for evaluation of a positive HOWARD in the context of diffuse pain. Upon evaluation I do not see any active synovitis. There are no active skin rashes. Subsequent sub serologies are all negative with normal inflammatory markers. There are no cytopenias or proteinuria. Her clinical picture at this point is rather consistent with fibromyalgia Discussed management of fibromyalgia with patient. Is a noninflammatory, non- autoimmune central afferent processing disorder leading to a diffuse pain syndrome. I suggested that patient try to address her underlying psychiatric issues, anxiety/ depression. I suggested evaluation by a therapist and/or a psychiatrist. Advised patient to use her CPAP regularly. Try to follow sleep hygiene practices. Patient would benefit from increased physical activity, either through formal physical therapy or by joining a gym. Advised patient that she should start activity slowly and increase as tolerated. Consider low-impact exercises such as walking, swimming, aqua therapy stretching, yoga. Patient is already on duloxetine prescribed by PCP. Continue with that Re-evaluate in 6 months. Discussed symptoms and signs suggestive of an autoimmu ne rheumatic disease. Advised patient to take any pictures of any swollen joints or any rashes. Plan I spent 26 minutes reviewing patient's chart, evaluating patient, counseling patient and documenting in the chart Coding Level of Care Code Est Pt Level 4 (45424) Diagnoses HOWARD positive R76.8
[2024-02-23 12:39] VITALS: BP 132/86; PULSE 77; O2SAT 98; BMI 44.4
== END 2024-02-23 13:18 | disposition home or self-care (01) ==
PROVIDERS: PCP General Practice; Referring Provider General Practice; Visit Provider Student in an Organized Health Care Education/Training Program
DX: R76.8 Other specified abnormal immunological findings in serum (principal)
CPT/HCPCS: 99214

== ENCOUNTER → 2024-02-23 12:36 | Outpatient (BNVA) | payer MEDICAID, SELFPAY | PROVIDERS: PCP General Practice; Visit Provider Student in an Organized Health Care Education/Training Program | DX: R76.8 Other specified abnormal immunological findings in serum (principal) | CPT/HCPCS: 99212 ==

== ENCOUNTER 2024-08-15 09:29 | Outpatient (AMB) | payer MEDICAID, SELFPAY ==
--- NOTE | 2024-08-15 09:51 | A.OFFVIS_ITS ---
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 No complaints. Last Pap/HPV was negative in 12/24, the patient is status post hysterectomy with left salpingo-oophorectomy and right salpingectomy PFSH Medical History History of female sterilization GENESIS on CPAP Hx of abnormal cervical Pap smear Well woman exam with routine gynecological exam Screen for sexually transmitted diseases Pre-op evaluation Obesity due to excess calories Depression Anxiety Arthritis Carpal tunnel syndrome Asthma Surgical History H/O hysterectomy for benign disease Hx of hysterectomy Hx of skin graft Family History Mother Diabetes Hypertension High cholesterol Father No problems noted. Sister ADHD Scoliosis Sister No problems noted. Sister No problems noted. Sister No problems noted. Sister No problems noted. Brother No problems noted. Daughter No problems noted. Daughter ADHD PTSD (post-traumatic stress disorder) Daughter No problems noted. Daughter No problems noted. Son No problems noted. Son No problems noted. 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 Female Reproductive History Menstrual Age of Menarche: 13 Menopause type: surgical Date of last pap smear: 12/15/22 Review of Systems Const All systems reviewed & are unremarkable except as noted in HPI and below Card Reports as per HPI and Reports no additional complaints Resp Reports as per HPI and Reports no additional complaints GI Reports as per HPI and Reports no additional complaints Reports as per HPI Physical Exam Vital Signs: Last Vital Signs BP 112/70 08/15/24 09:55 BMI result Body Mass Index 34.7 Const General: cooperative, healthy appearing and comfortable General: Yes bladder normal to palpation External Female Exam: No lesion Speculum Exam - Vagina: normal appearance of the vagina, normal vaginal discharge and not erythematous Speculum Exam - Cervix: Cervix absent Bimanual exam- vagina & uterus: bladder normal to palpation and uterus absent Bimanual Exam- Adnexa, other: Other (No masses detected) Assessment & Plan Assessment & Plan (1) Well woman exam: Code(s): Z01.419 - Encounter for gynecological examination (general) (routine) without abnormal findings Category: Medical Plan: Cotesting not indicated. Counseled the patient about the recommended dietary allowance of 1000 mg of Calcium & 600 IU of vitamin D. The patient was instructed to perform monthly self-breast exams and to schedule an annual exam in a year; All questions answered and the patient verbalized understanding. Instructed the patient to schedule annual exam in a year Coding Level of Care Code Est Pt Prev Care 18-39y(71547) Diagnoses Well woman exam Z01.419
[2024-08-15 09:55] VITALS: BP 112/70; BMI 34.7
== END 2024-08-15 10:24 | disposition home or self-care (01) ==
PROVIDERS: PCP General Practice; Visit Provider Obstetrics & Gynecology
DX: Z01.419 Encounter for gynecological examination (general) (routine) without abnormal findings (principal)
CPT/HCPCS: 99395

== ENCOUNTER → 2024-08-15 09:29 | Outpatient (BNVA) | payer MEDICAID, SELFPAY | PROVIDERS: PCP General Practice; Visit Provider Obstetrics & Gynecology | DX: Z01.419 Encounter for gynecological examination (general) (routine) without abnormal findings (principal) | CPT/HCPCS: 99395 ==

== ENCOUNTER 2024-08-24 09:48 | Outpatient (AMB) | payer MEDICAID, SELFPAY ==
[2024-08-24 10:12] VITALS: BP 122/74; PULSE 61; O2SAT 99; BMI 35.6
--- NOTE | 2024-08-24 10:12 | A.OFFVIS_ITS ---
Vital Signs 08/24/24 10:12 Height 5 ft 2 in Weight 194 lb 7.163 oz BMI 35.6 BP 122/74 Blood Pressure Location Rt brachial Position Sitting Pulse 61 Pulse Source Pulse Oximeter Pulse Oximetry (%) 99 Oxygen Delivery Method Room Air Intake Visit Reasons: HOWARD +ve Intake Note: Patient last seen by Doctor Doris Bar on 02/23/24. Presents today for RA follow up and test results. Allergies sertraline [From Zoloft] Allergy (Intermediate, Verified 08/24/24 10:14) Hives latex Allergy (Mild, Verified 08/24/24 10:14) Hives Medication List - Last Reconciled 08/24/24 by Doris Bar MD acetaminophen 500 mg (15 mL) PO Q6H PRN albuterol sulfate 90 mcg/actuation (Ventolin HFA) 2 puffs inhalation Q4H PRN docusate sodium (Colace) 100 mg PO BID duloxetine 20 mg PO DAILY fluticasone propionate 110 mcg/actuation (Flovent HFA) 2 puffs inhalation BID valacyclovir (Valtrex) 1,000 mg PO DAILY HPI Comments Details: Patient returns for re-evaluation. She states that she had been off of work for the last 3 months as she has to take of her daughter who was recently diagnosed with seizures. States that she continues to have diffuse pains. Today her right elbow particular is most painful. She states that she gets swelling of her fingers especially in the morning, she had to take her rings off, she states that the swelling improves by mid day Initial history: 38-year-old female presents for evaluation of a positive HOWARD. The condition started approximately 2 years ago with pain all over her body. Pain is in her muscles and joints. She has pain in her back, hands, some days she would have generalized morning stiffness for about 30 minutes. She would not be able to get out of bed. There was a period of time when she was having significant bilateral heel pain and she could not put a step on the floor. She states that she gets intermittent rashes on her arms, there are usually worse in the summer,, usually itchy. She states that when she saw her PCP last year she was told that she has a butterfly rash. She denies any fevers or weight loss. She denies any blood or frothy urine. She states that her hands are always cold. And they are purple in the cold. She had 9 pregnancies in total, 6 children and 3 abortions. She denies any history of DVT/PE. She has a paternal grandmother with SLE. [facility] Medical History History of female sterilization GENESIS on CPAP Hx of abnormal cervical Pap smear Well woman exam with routine gynecological exam Screen for sexually transmitted diseases Pre-op evaluation Obesity due to excess calories Depression Anxiety Arthritis Carpal tunnel syndrome Asthma Surgical History H/O hysterectomy for benign disease Hx of hysterectomy Hx of skin graft Family History Mother Diabetes Hypertension High cholesterol Father No problems noted. Sister ADHD Scoliosis Sister No problems noted. Sister No problems noted. Sister No problems noted. Sister No problems noted. Brother No problems noted. Daughter No problems noted. Daughter ADHD PTSD (post-traumatic stress disorder) Daughter No problems noted. Daughter No problems noted. Son No problems noted. Son No problems noted. 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 Female Reproductive History Menstrual Age of Menarche: 13 Review of Systems Const Reports fatigue Musc Reports arthralgias, Reports joint swelling, Reports muscle weakness and Reports stiffness Psych Reports anxiety and Reports depression Endo Reports fatigue Physical Exam Vital Signs: Last Vital Signs Pulse 61 08/24/24 10:12 BP 122/74 08/24/24 10:12 Pulse Ox 99 08/24/24 10:12 Oxygen Delivery Method Room Air 08/24/24 10:12 BMI result Body Mass Index 35.6 Const General: cooperative, healthy appearing and comfortable Nutritional Appearance: obese Orientation/consciousness: patient oriented x3 Limitations: no limitations HEENT Head: Yes normocephalic and Yes atraumatic Mouth: moist mucous membranes Resp Effort & Inspection: normal respiratory effort and able to speak in complete sentences Cardio Rate: regular rate Rhythm: regular rhythm GI Palpation (GI): Soft to palpation and nontender Skin General skin exam: no rashes or lesions noted Neuro General: patient oriented x3 Extrem Other: Tenderness at the common extensor origin at the right lateral epicondyle with positive resisted wrist extension test No active synovitis Few fibromyalgia tender points (bilateral arms and right thigh) Mild hyperflexibility of thumbs Normal nailfold capillaroscopy Assessment & Plan Assessment & Plan (1) HOWARD positive: Code(s): R76.8 - Other specified abnormal immunological findings in serum Category: Medical Plan: This is a 39-year-old female who presents for evaluation of a positive HOWARD in the context of diffuse pain. On initial evaluation 6 months ago did not find any evidence of an autoimmune rheumatic disease. I asked patient to return for re-evaluation given the intermittent swelling of her fingers. On exam, there is no active synovitis. Her picture remains consistent with fibromyalgia. Fibromyalgia management was discussed in detail last visit Discussed symptoms and signs that are suggestive of an autoimmune rheumatic disease. Advised patient to return as needed (2) Right tennis elbow: Code(s): M77.11 - Lateral epicondylitis, right elbow Category: Medical Plan: Discussed tennis elbow its management. I provided patient with a printout of home exercises. If not improving in 3-4 weeks. Advised patient to call the office and I will refer her to occupational therapy Plan I spent 26 minutes reviewing patient's chart, evaluating patient, counseling patient and documenting in the chart Coding Level of Care Code Est Pt Level 4 (93500) Diagnoses HOWARD positive R76.8 Right tennis elbow M77.11
== END 2024-08-24 10:46 | disposition home or self-care (01) ==
PROVIDERS: PCP General Practice; Visit Provider Student in an Organized Health Care Education/Training Program
DX: R76.8 Other specified abnormal immunological findings in serum (principal); M77.11 Lateral epicondylitis, right elbow
CPT/HCPCS: 99214

== ENCOUNTER → 2024-08-24 09:48 | Outpatient (BNVA) | payer MEDICAID, SELFPAY | PROVIDERS: PCP General Practice; Visit Provider Student in an Organized Health Care Education/Training Program | DX: R76.8 Other specified abnormal immunological findings in serum (principal); M77.11 Lateral epicondylitis, right elbow | CPT/HCPCS: 99212 ==

== ENCOUNTER → 2024-11-28 10:53 | Outpatient (RCR) | payer MEDICAID, SELFPAY | END | disposition home or self-care (01) | LOC: HO.OT 03-17 09:48 | PROVIDERS: PCP General Practice; Visit Provider General Practice | DX: G56.21 Lesion of ulnar nerve, right upper limb (principal) | CPT/HCPCS: 29105; 29130; 97035; 97110; 97166; 97760 ==

== ENCOUNTER 2025-04-03 11:26 | Outpatient (REF) | payer MEDICAID, SELFPAY ==
--- NOTE | ~2025-04-03 | XR_ITS ---
EXAMINATION: XR CHEST CLINICAL INFORMATION: chest pain COMPARISON: 10/12/2022 TECHNIQUE: 2 views of the chest were obtained. FINDINGS: Cardiac size is within normal limits. Hilar structures are unremarkable. Lungs are clear and well aerated. There is no sign of pleural effusion. Surgical clips project in the left upper quadrant. XR/XR chest 2V IMPRESSION: No acute disease Electronically signed by: David Oliver MD 04/03/2025 04:56 PM EDT
--- OUTSIDE RECORDS SUMMARY | 2025-04-03 13:06 | XMS_ITS | Encounter Summary ---
Author Organization [employer] Address [address] [place] [address] [address] [place] [address] Care Team Providers Care Bricklayer Helper Name Role Phone Nika Bassett MD Primary Care Provider [phone] Encounter Details Date Type Department Care Team (Late st Contact Info) Description 09/14/2024 Orders Only [facility] [address] [place] [address] Nika Bassett MD [address] [place] [address] Fibromyalgia (Primary Dx) Social History Tobacco Use Types Packs/Day Years Used Date Smoking Tobacco: Every Day Cigarettes Passive Smoke Exposure: Current Smokeless Tobacco: Never Alcohol Use Standard Drinks/Week Comments Never 0 (1 standard drink = 0.6 oz pur e alcohol) Depression Answer Date Recorded Patient Health Questionnaire-9 Score 19 06/17/2023 Housing Stability Answer Date Recorded What is your housing situation today? I have paloma chávez 01/19/[address] you li ve. Do you have problems with any of the following? Mold;Water leaks;Pests such as bugs, ants, or mice 01/19/2024 Food Insecurity Answer Date Recorded Within the past 12 months, y ou worried that your food would run out before you got money to buy more: Never True 08/24/2023 Within the past 12 months,th e food you bought just didn't last and you didn't have enough money to get more: Never True Transportation Answer Date Recorded In the past 12 months, has l ack of transportation kept you from medical appts, meetings, work or from getting things needed for daily living? Yes, it has kept me from non-medical meetings, work, or getting things that I need 01/19/2024 Utilities Answer Date Recorded In the past 12 months, has t he electric, gas, oil or water company threatened to shut off services in your home? Yes 01/19/2024 Depression Answer Date Recorded Patient Health Questionnaire-2 Score 6 06/17/2023 Comments Unknown Sex and Gender Information Value Date Recorded Sex Assigned at Female 08/31/2022 10:15 AM EDT Legal Sex Female 10:15 AM EDT Gender Identity Female 08/31/2022 10:15 AM EDT Sexual Orientation Bisexual 10/22/2022 4: 14 PM EST documented as of this encounter Plan of Treatment Not on file documented as of this encounter Visit Diagnoses Diagnosis Fibromyalgia- Primary Unspecified myalgia and myositis documented in this encounter Additional Health Concerns Assessment Noted Time PHQ-9 Depression Total Score: 19 023 10:57 AM EDT documented as of this encounter Care Teams Bricklayer Helper Relationship Specialty Start Date End Date Nika Bassett MD [address] [place] [address] PCP - General Family Medicine 02/09/22 documented as of this encounter
== END 2025-04-03 11:27 | disposition home or self-care (01) ==
LOC: HO.XRAY 11:26
PROVIDERS: PCP General Practice; Visit Provider Nurse Practitioner
DX: R07.89 Other chest pain (principal)
CPT/HCPCS: 71046

== ENCOUNTER → 2025-04-03 11:30 | Outpatient (BNV) | payer MEDICAID, SELFPAY | PROVIDERS: PCP General Practice; Visit Provider Radiology Diagnostic Radiology | DX: R07.9 Chest pain, unspecified (principal) | CPT/HCPCS: 71046 ==

== ENCOUNTER → 2025-07-18 12:58 | Outpatient (BNVA) | payer OTHER, SELFPAY | PROVIDERS: PCP General Practice; Visit Provider Physician Assistant | DX: S81.811A Laceration without foreign body, right lower leg, initial encounter (principal); W22.09XA Striking against other stationary object, initial encounter; Z23 Encounter for immunization | CPT/HCPCS: 90715; 99204 ==

== ENCOUNTER → 2025-07-20 12:02 | Outpatient (BNVA) | payer OTHER, SELFPAY | PROVIDERS: PCP General Practice; Visit Provider Physician Assistant | DX: S81.811A Laceration without foreign body, right lower leg, initial encounter (principal); W22.09XA Striking against other stationary object, initial encounter | CPT/HCPCS: 99213 ==

== ENCOUNTER → 2025-07-25 11:44 | Outpatient (BNVA) | payer OTHER, SELFPAY | PROVIDERS: PCP General Practice; Visit Provider Physician Assistant | DX: Z48.02 Encounter for removal of sutures (principal); S81.811A Laceration without foreign body, right lower leg, initial encounter; W22.09XA Striking against other stationary object, initial encounter; Z02.79 Encounter for issue of other medical certificate | CPT/HCPCS: 99212; 99213 ==

== ENCOUNTER 2025-07-26 11:10 | Outpatient (REF) | payer OTHER, SELFPAY ==
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
--- OUTSIDE RECORDS SUMMARY | 2025-07-26 15:56 | XMS_ITS | Encounter Summary ---
Author Organization [employer] Address [address] [place] [address] [address] [place] [address] Care Team Providers Care Trackman Name Role Phone Nika Bassett MD Primary Care Provider [phone] Encounter Details Date Type Department Care Team (Late st Contact Info) Description 09/14/2024 Orders Only [facility] [address] [place] [address] Nika Bassett MD [address] [place] [address] Fibromyalgia (Primary Dx) Social History Tobacco Use [...] as of this encounter Plan of Treatment Upcoming Encounters Date Type Department Care Team (Late st Contact Info) Description 08/27/2025 2:00 PM EDT Office Visit [facility] [address] [place] [phone] Nika Bassett MD [address] [place] [phone] 08/29/2025 2:45 PM EDT Office Visit [facility] [address] [place] [phone] Violet Segal FNP [address] [place] [phone] documented as of this encounter Visit Diagnoses Diagnosis Fibromyalgia- Primary Unspecified myalgia and myositis documented in this encounter Additional Health Concerns Assessment Noted Time PHQ-9 Depression Total Score: 19 023 10:57 AM EDT documented as of this encounter Care Teams Trackman Relationship Specialty Start Date End Date Nika Bassett MD [address] [place] [phone] PCP - General Family Medicine 02/09/22 documented as of this encounter
--- OUTSIDE RECORDS SUMMARY | 2025-07-26 15:57 | XMS_ITS | Encounter Summary ---
Author Organization [employer] Address [address] [place] [address] [address] [place] [address] Care Team Providers Care Can Dragger Name Role Phone Nika Bassett MD Primary Care Provider [phone] Encounter Details Date Type Department Care Team (Late st Contact Info) Description 12/16/2022 Orders Only [facility] [address] [place] [phone] Nika Bassett MD [address] [place] [address] [phone] Bacterial vaginosis (Primary Dx) Social History Tobacco Use Types Packs/Day Years Used Date Smoking Tobacco: Former Cigarettes Smokeless Tobacco: Never Alcohol Use Standard Drinks/Week Comments Never 0 (1 standard drink = 0.6 oz pur e alcohol) Comments Unknown Sex and Gender Information Value [...] Description 08/27/2025 2:00 PM EDT Office Visit [facility] [address] [place] [phone] Nika Bassett MD [address] [place] [address] [phone] 08/29/2025 2:45 PM EDT Office Visit [facility] [address] [place] [address] Violet Segal FNP [address] [place], [place] [phone] documented as of this encounter Visit Diagnoses Diagnosis Bacterial vaginosis- Primary Unspecified vaginitis and vulvovaginitis documented in this encounter Care Teams Can Dragger Relationship Specialty Start Date End Date Nika Bassett MD [address] [place] [address] PCP - General Family Medicine 02/09/22 documented as of this encounter
--- OUTSIDE RECORDS SUMMARY | 2025-07-26 15:57 | XMS_ITS | Encounter Summary ---
Author Organization [employer] Address [address] [place] [address] 7 [place] [address] Care Team Providers Care Crewman Armoured Personnel Carrier [id number] Name Role Phone Nika Bassett MD Primary Care Provider [phone] Reason for Visit * Reason Onset Date Comments Nurse Triage 08/09/2024 Encounter Details Date Type Department Care Team ([facility] st Contact Info) Description 08/09/2024 Telephone [facility] [address] [place] [address] Nika Bassett MD [address] [place] [address] Nurse Triage Social History Tobacco Use Types Packs/Day Years [...] PM EST documented as of this encounter Miscellaneous Notes * Telephone Encounter - Liyah Saleh RN - 08/09/2024 2:26 PM EDT Triage call Pt is asked what are sx that are called in about. Pt declines to offer information at this time , reports information should be on chart and is personal. Last office visit 01/28/24. Pt is requesting valtrex or valcyclovir medication due to an out break that is very uncomfortable. Wash Tank Tender reports that this medication is not seen on Pt chart in medication section. Pt asks what writers name is, name given, Pt reports this is unprofessional and that medication should be on chart. Pt is advised since last apt is so long ago now may need to come in to be seen, offered [facility] today opened till 8pm. Pt didn't agree with this and asks, why should I go there and tell someone else the same thing I am telling you , Pt reports that PCP knows what Pt needs and knows that medication should be on med section of chart. Pt is offered tele visit with Dr. Rajan today at 300pm. Pt agrees with this and is call scheduled. Pt is advised may receive a call for registration for this visit so be close to phone. Pt agrees. Insurance is verified as active. Protocol Used: Medication Question Call (Adult) Protocol-Based Disposition: See in Office or Video Visit within 3 Days Positive Triage Question: * Prescription request for new medicine (not a refill) * All higher-acuity triage questions were negative Care Advice Discussed: * Reasons To Call Back - You have any more questions - You become worse * Telephone Encounter - Lynette Grigsby - 08/09/2024 1:54 PM EDT Symptom: Sores or Ulcers - Caller Reports Outcome: Schedule an appointment to be seen within 24 hours Reason: Caller denied all higher acuity questions The caller accepted this outcome. documented in this encounter Plan of Treatment Upcoming Encounters Date Type Department Care Team (Late st Contact Info) Description 08/27/2025 2:00 PM EDT Office Visit [facility] [address] [place] [address] Nika Bassett MD [address] [place] [address] 08/29/2025 2:45 PM EDT Office Visit [facility] [address] [place] [address] Violet Segal FNP [address] [place] [address] documented as of this encounter Visit Diagnoses Not on filedocumented in this encounter Additional Health Concerns Assessment Noted Time PHQ-9 Depression Total Score: 19 023 10:57 AM EDT documented as of this encounter Care Teams Crewman Armoured Personnel Carrier [id number] Relationship Specialty Start Date End Date Nika Bassett MD [address] [place] [address] PCP - General Family Medicine 02/09/22 documented as of this encounter
--- OUTSIDE RECORDS SUMMARY | 2025-07-26 15:57 | XMS_ITS | Encounter Summary ---
Author Organization [employer] Address [address] [place] [address] 7t [place] [address] Care Team Providers Care Lost And Found Clerk Name Role Phone Nika Bassett MD Primary Care Provider Encounter Details Date Type Department Care Team (Late st Contact Info) Description 11/09/2022 Orders Only [facility] MEDICINE [address] [place] [address] Berna Mayes, RN [address] [place] [address] Social History Tobacco Use Types Packs/Day Years [...] Orientation Bisexual 10/22/2022 4: 14 PM EST COVID-19 Exposure Response Date Recorded In the last 10 days, have yo u been in contact with someone who was confirmed or suspected to have Coronavirus/COVID-19? No / Unsure 10/16/2022 10:35 AM EST documented as of this encounter Plan of Treatment Upcoming Encounters Date Type Department Care Team (Late st Contact Info) Description 08/27/2025 2:00 PM EDT Office Visit [facility] MED[facility]INE [address] [place] [address] Nika Bassett MD [address] [place], [place] [phone] 08/29/2025 2:45 PM EDT Office Visit [facility] MED[facility]INE [address] [place], [place] [phone] Violet Segal FNP [address] [place], [place] [phone] documented as of this encounter Visit Diagnoses Not on filedocumented in this encounter Care Teams Lost And Found Clerk Relationship Specialty Start Date End Date Nika Bassett MD [address] [place], [place] [phone] PCP - General Family Medicine 02/09/22 documented as of this encounter
--- OUTSIDE RECORDS SUMMARY | 2025-07-26 15:57 | XMS_ITS | Encounter Summary ---
Author Organization [employer] Address [address] [place] [address] 7 [place] [address] Care Team Providers Care Reducing Salon Attendant Name Role Phone Nika Bassett MD Primary Care Provider [phone] Reason for Visit * Reason Onset Date Comments Referral 07/02/2023 Encounter Details Date Type Department Care Team (Late st Contact Info) Description 07/02/2023 Telephone [facility]INE [address] [place] [address] Nika Bassett MD [address] [place] [address] Referral Social History Tobacco Use Types Packs/Day Years Used Date Smoking Tobacco: Every Day Cigarettes Passive Smoke Exposure: Current Smokeless Tobacco: Never Alcohol Use Standard Drinks/Week Comments Never 0 (1 standard drink = 0.6 oz pur e alcohol) Depression Answer Date Recorded Patient Health Questionnaire-9 Score 19 06/17/2023 Depression Answer Date Recorded Patient Health Questionnaire-2 Score 6 06/17/2023 Comments Unknown Sex and Gender Information Value Date Recorded Sex Assigned at Female 08/31/2022 10:15 AM EDT Legal Sex Female 10:15 AM EDT Gender Identity Female 08/31/2022 10:15 AM EDT Sexual Orientation Bisexual 10/22/2022 4: 14 PM EST documented as of this encounter Miscellaneous Notes * Telephone Encounter - Lynette Calista - 07/02/2023 8:59 AM EDT Tc from pt requesting update on referral locations for Rheumatology, Podiatry and Physical Therapy.States has not yet received a call for appt. documented in this encounter Plan of Treatment Upcoming Encounters Date Type Department Care Team (Late st Contact Info) Description 08/27/2025 2:00 PM EDT Office Visit [facility] [address] [place] [address] Nika Bassett MD [address] [place], [place] [phone] 08/29/2025 2:45 PM EDT Office Visit [facility] [address] [place], [place] [phone] Violet Segal FNP [address] [place], [place] [phone] documented as of this encounter Visit Diagnoses Not on filedocumented in this encounter Additional Health Concerns Assessment Noted Time PHQ-9 Depression Total Score: 19 023 10:57 AM EDT documented as of this encounter Care Teams Reducing Salon Attendant Relationship Specialty Start Date End Date Nika Bassett MD [address] [place] [phone] PCP - General Family Medicine 02/09/22 documented as of this encounter
--- OUTSIDE RECORDS SUMMARY | 2025-07-26 15:58 | XMS_ITS | Encounter Summary ---
Author Organization [employer] Address [address] [place] [address] 7 [place] [address] Care Team Providers Care Prefitter Doors Name Role Phone Nika Bassett MD Primary Care Provider [phone] Reason for Referral * Consultation (STAT) - Closed Specialty Diagnoses / Procedures Referred By Contac t Referred To Contact Ophthalmology Diagnoses Hordeolum externum of right lower eyelid Nika Bassett MD [address] [place] [address] Phone: tel: fax: [facility] [place] [address] [place] [address] Phone: tel: fax: Referral ID Status Reason Start Date Expiration Date V isits Requested Visits Authorized [id number] Closed Specialty Services Required 07/26/2025 07/26/2026 1 1 Encounter Details Date Type Department Care Team (Late st Contact Info) Description 07/26/2025 Orders Only [facility] [address] [place] [address] Nika Bassett MD [address] [place] [address] Hordeolum externum of right lower eyelid (Primary Dx) Social History Tobacco Use Types [...] 2:00 PM EDT Office Visit [facility] [address] [place] [address] Nika Bassett MD [address] [place] [address] 08/29/2025 2:45 PM EDT Office Visit [facility] [address] [place] [address] Violet Segal FNP [address] [place] [address] Scheduled Referrals Name Type Priority Associated Diagnoses Order Schedule Referral to Ophthalmology Outpatient Referral STAT Hordeolum externum of right lower eyelid Expected: 07/26/2025 (Approximate), Expires: 07/26/2026 documented as of this encounter Visit Diagnoses Diagnosis Hordeolum externum of right lower eyelid- Primary documented in this encounter Additional Health Concerns Assessment Noted Time PHQ-9 Depression Total Score: 19 023 10:57 AM EDT documented as of this encounter Care Teams Prefitter Doors Relationship Specialty Start Date End Date Nika Bassett MD [address] [place] [address] PCP - General Family Medicine 02/09/22 documented as of this encounter
--- OUTSIDE RECORDS SUMMARY | 2025-07-26 15:58 | XMS_ITS | Encounter Summary ---
Author Organization [employer] Address [address] [place] [address] 7 [place] [address] Care Team Providers Care Primary Health Organisation Manager Name Role Phone Nika Bassett MD Primary Care Provider [phone] Reason for Visit * Reason Onset Date Comments Referral 07/25/2025 Encounter Details Date Type Department Care Team ([facility] st Contact Info) Description 07/25/2025 Telephone [facility] [address] [place] [address] Nika Bassett MD [address] [place] [address] Referral Social History Tobacco Use Types Packs/Day [...] encounter Miscellaneous Notes * Telephone Encounter - Berna Mayes RN - 07/25/2025 3:43 PM EDT TC placed to [facility] [phone] who reports the patient has an urgent appointment for tomorrow 07/26/25 at 2:30pm. Patient was referred by Dr. Mccallum ([facility]) for a painful stye on R lower eyelid. [facility] reports they need an insurance referral. Please place referral as STAT d/t appointment being tomorrow. Thank you! Facility Name:[facility] [address], [place] [address] Provider : Dr. Olivares Provider NPI : [id number] Phone # : [phone] Fax #: [phone] * Telephone Encounter - Zahra Johnathan Oliva - 07/25/2025 1:03 PM EDT TC from pt requesting new referral : DATE: 07/26 TIME: 2:30PM Address: [address], [place] [address] Facility Name:[facility] Provider : Dr. Olivares Provider NPI : [id number] Phone # : [phone] Fax #: [phone] documented in this encounter Plan of Treatment Upcoming Encounters Date Type Department Care Team (Late st Contact Info) Description 08/27/2025 2:00 PM EDT Office Visit [facility] [address] [place] [address] Nika Bassett MD [address] [place], [place] [phone] 08/29/2025 2:45 PM EDT Office Visit [facility] [address] [place], [place] [phone] Violet Segal FNP [address] [place], [place] [phone] documented as of this encounter Visit Diagnoses Not on filedocumented in this encounter Additional Health Concerns Assessment Noted Time PHQ-9 Depression Total Score: 19 023 10:57 AM EDT documented as of this encounter Care Teams Primary Health Organisation Manager Relationship Specialty Start Date End Date Nika Bassett MD [address] [place] [phone] PCP - General Family Medicine 02/09/22 documented as of this encounter
--- OUTSIDE RECORDS SUMMARY | 2025-07-26 15:58 | XMS_ITS | Encounter Summary ---
Author Organization [employer] Address [address] [place] [address] 7 [place] [address] Care Team Providers Care Animal Chiropractor Name Role Phone Nika Bassett MD Primary Care Provider [phone] Reason for Visit * Reason Onset Date Comments Lab Orders 07/25/2025 Encounter Details Date Type Department Care Team ([facility] st Contact Info) Description 07/25/2025 Telephone [facility] [address] [place] [address] Nika Bassett MD [address] [place] [address] Lab Orders Social History Tobacco Use Types Packs/Day Years [...] 10:15 AM EDT Sexual Orientation Bisexual 10/22/2022 4 :14 PM EST documented as of this encounter Miscellaneous Notes * Telephone Encounter - Berna Mayes RN - 07/25/2025 3:47 PM EDT TC placed to patient [phone] in regards to below request. Patient denies previous positive TB screening. Patient informed Tspot has been ordered and patient can complete BW M-F before 3:30pm. Patient verbalized understanding. Patient to f/u PRN. * Telephone Encounter - Zahra Oliva - 07/25/2025 1:09 PM EDT Tc from pt requesting an order for TB test fro work Contact pt at [phone] documented in this encounter Plan of Treatment Upcoming Encounters Date Type Department Care Team (Late st Contact Info) Description 08/27/2025 2:00 PM EDT Office Visit [facility]INE [address] [place] [address] Nika Bassett MD [address] [place] [address] 08/29/2025 2:45 PM EDT Office Visit [facility] [address] [place] [address] Violet Segal FNP [address] [place] [address] Scheduled Orders Name Type Priority Associated Diagnoses Orde r Schedule T-SPOT .TB Lab Routine Encounter for screening for respiratory tuberculosis Expected: 07/25/2025 (Approximate), Expires: 07/25/2026 documented as of this encounter Visit Diagnoses Diagnosis Encounter for screening for respiratory tuberculosis documented in this encounter Additional Health Concerns Assessment Noted Time PHQ-9 Depression Total Score: 19 023 10:57 AM EDT documented as of this encounter Care Teams Animal Chiropractor Relationship Specialty Start Date End Date Nika Bassett MD [address] [place] [address] PCP - General Family Medicine 02/09/22 documented as of this encounter
--- OUTSIDE RECORDS SUMMARY | 2025-07-26 15:58 | XMS_ITS | Encounter Summary ---
Author Organization [employer] Address [address] [place] [address] 7 [place] [address] Care Team Providers Care History Teacher Name Role Phone Nika Bassett MD Primary Care Provider [phone] Reason for Visit * Reason Onset Date Comments Med Refill 01/26/2024 Encounter Details Date Type Department Care Team (Late st Contact Info) Description 01/26/2024 Refill [facility] [address] [place] [address] Lashae Salcedo MD [address] [place] [address] Acute bilateral low back pain with left-sided sciatica Social History Tobacco Use Types Packs/Day Years Used Date Smoking Tobacco: Every Day Cigarettes Passive Smoke Exposure: Current Smokeless Tobacco: Never Alcohol Use Standard Drinks/Week Comments Never 0 (1 standard drink = 0.6 oz pur e alcohol) Depression Answer Date Recorded Patient Health Questionnaire-9 Score 19 06/17/2023 Housing Stability Answer Date Recorded What is your housing situation today? I have palomasolange chávez 01/19/[address] you [...] Description 08/27/2025 2:00 PM EDT Office Visit [facility] [address] [place] [address] Nika Bassett MD [address] [place] [address] 08/29/2025 2:45 PM EDT Office Visit [facility] [address] [place] [address] Violet Segal FNP [address] [place], [place] [phone] documented as of this encounter Visit Diagnoses Diagnosis Acute bilateral low back pain with left-sided sciatica documented in this encounter Additional Health Concerns Assessment Noted Time PHQ-9 Depression Total Score: 19 023 10:57 AM EDT documented as of this encounter Care Teams History Teacher Relationship Specialty Start Date End Date Nika Bassett MD [address] [place] [address] PCP - General Family Medicine 02/09/22 documented as of this encounter
[2025-07-29 20:39] LABS: TS Negative Control Passed; TS Panel A 3; TS Panel B 1; TS Positive Control Passed; TSpotTB Negative (Negative)
== END 2025-07-26 11:11 | disposition home or self-care (01) ==
LOC: HO.HHCL 11:10
PROVIDERS: PCP General Practice; Visit Provider General Practice
DX: Z11.1 Encounter for screening for respiratory tuberculosis (principal)
CPT/HCPCS: 36415; 86481